=== PATIENT | female | born 1960 | race Caucasian/White ===

== ENCOUNTER 2018-10-04 10:56 | Outpatient (CLI) | payer BC, SELFPAY ==
[2018-10-04 12:56] LABS: HCT 46.1 % (36.0-46.0); HGB 14.8 g/dL (12.0-15.5); Mean Corp. HGB Concentration 32.1 g/dL (32.0-36.0); Mean Corpuscular Volume 84.1 fL (80-95); Mean Platelet Volume 9.5 fL (8.0-11.0); Platelet Count 519 x1000/uL (130-400); RBC 5.48 m/cumm (4.00-5.20); RBC Distribution Width 14.5 % (11.7-14.6); White Blood Cell Count 22.94 k/cumm (4.4-10.8)
[2018-10-04 13:35] LABS: ALT 24 U/L (12-78); AST 17 U/L (15-37); Albumin 3.8 g/dL (3.4-5.0); Alkaline Phosphatase 75 U/L (46-116); Anion Gap 13.1 mmol/L (3-11); BUN 27 mg/dL (7-18); Bilirubin, Total 0.3 mg/dL (0.2-1.0); C-Reactive Protein 1.13 mg/dL (0.0-0.3); CO2 24.9 mmol/L (21.0-32.0); CREATININE 1.03 mg/dL (0.55-1.02); Calcium 9.4 mg/dL (8.5-10.1); Chloride 98 mmol/L (98-107); Estimated GFR 55.04 (mL/min/1.73m2); Glucose 135 mg/dL (70-100); Potassium 4.5 mmol/L (3.5-5.1); Sodium 136 mmol/L (136-145); Total Protein 7.3 g/dL (6.4-8.2)
[2018-10-04 14:34] LABS: ESR 20 MM/HR (0-30)
== END 2018-10-04 11:16 ==
PROVIDERS: PCP Family Medicine; Visit Provider Family Medicine
DX: M35.3 Polymyalgia rheumatica (principal)
CPT/HCPCS: 36415; 80053; 85027; 85652; 86140

== ENCOUNTER 2019-02-02 17:55 | Outpatient (REF) | payer BC, SELFPAY | END 2019-02-02 18:15 | LOC: LBN 17:55 | PROVIDERS: PCP Family Medicine; Visit Provider Obstetrics & Gynecology | DX: L02.214 Cutaneous abscess of groin (principal) | CPT/HCPCS: 87077; 87070; 87186; 87205 ==

== ENCOUNTER 2019-02-10 01:45 | Outpatient (RCR) | payer BC, SELFPAY ==
[2019-02-03] MEDS: Normal Saline Flush 10 ML SYR IVP (07:15)
[2019-02-04] MEDS: Normal Saline Flush 10 ML SYR IVP ×2 (08:09→15:01)
[2019-02-05] MEDS: Normal Saline Flush 10 ML SYR IVP (13:29)
[2019-02-05] MEDS: VANCOMYCIN 1,500 MG in Normal Saline 250 ML 166.667 MG IVPB (13:29)
[2019-02-06] MEDS: VANCOMYCIN 2,000 MG in Normal Saline 500 ML 250 MG IVPB (12:58)
[2019-02-07] MEDS: Normal Saline Flush 10 ML SYR IVP ×3 (09:16→20:54)
[2019-02-07 19:01] VITALS: BP 157/85; PULSE 95; RESP 16; TEMP 36.6; O2SAT 100
[2019-02-08] MEDS: Normal Saline Flush 10 ML SYR IVP ×2 (06:57→08:39)
[2019-02-08 18:50] VITALS: BP 157/79; PULSE 93; RESP 16; TEMP 36.3; O2SAT 97
[2019-02-09 07:07] LABS: Vancomycin, Trough 15.3 ug/mL (10.0-20.0)
[2019-02-09 07:26] LABS: CREATININE 1.17 mg/dL (0.55-1.02); Estimated GFR 47.51 (mL/min/1.73m2)
[2019-02-09] MEDS: Normal Saline Flush 10 ML SYR IVP ×2 (07:34→18:56)
[2019-02-09 18:58] VITALS: BP 147/94; PULSE 95; RESP 18; TEMP 36.2; O2SAT 97
[2019-02-10] MEDS: Normal Saline Flush 10 ML SYR IVP (07:15)
== END 2019-02-27 23:59 | disposition home or self-care (01) ==
LOC: INF 01:45
PROVIDERS: Obstetrics & Gynecology; PCP Family Medicine; Visit Provider Obstetrics & Gynecology Gynecology
DX: L02.214 Cutaneous abscess of groin (principal); B95.62 Methicillin resistant Staphylococcus aureus infection as the cause of diseases classified elsewhere; Z45.2 Encounter for adjustment and management of vascular access device
CPT/HCPCS: 36415; 36569; 96365; 96366; 99211; 80202; 82565

== ENCOUNTER 2019-04-20 10:51 | Outpatient (CLI) | payer BC, SELFPAY ==
[2019-04-20 13:36] LABS: C-Reactive Protein 2.72 mg/dL (0.0-0.3)
[2019-04-20 14:20] LABS: ESR 50 MM/HR (0-30)
== END 2019-04-20 11:11 ==
LOC: LBO 11:01 → LOS 13:11
PROVIDERS: PCP Family Medicine; Visit Provider Internal Medicine Rheumatology
DX: M35.3 Polymyalgia rheumatica (principal)
CPT/HCPCS: 36415; 85652; 86140

== ENCOUNTER 2019-04-27 13:24 | Outpatient (CLI) | payer BC, SELFPAY ==
--- NOTE | 2019-04-27 13:15 | DI.RAD_ITS ---
SYMPTOMS/DIAGNOSIS: NECK PAIN, TINGLING BOTH HANDS, PAIN LT ARM > RT ARM, CERVICALGIA, M54.2 CERVICAL SPINE: AP, lateral, oblique and open mouth odontoid projections are provided. There is straightening of the normal cervical lordosis. The vertebral bodies are intact. There is disc space narrowing at C 4 - 5, C 5 - 6 and C 6 - 7 with posterior osteophytes noted at C 5 - 6 and C 6 - 7. There is some bilateral bony foraminal compromise at C 6 - 7. The findings most severe on the right side. The neural canal is intact. The facet joints are intact. The posterior elements appear unremarkable. The odontoid is well maintained and is closely applied to the anterior arch of C 1. SUMMARY: Straightening of the normal cervical lordosis is demonstrated and there is evidence of degenerative disc disease and DJD at C 4 through C 7. Bony foraminal compromise by posterior spurring is identified at C 6 - 7 bilaterally.
== END 2019-04-27 13:44 ==
PROVIDERS: PCP Family Medicine; Visit Provider Family Medicine
DX: M54.2 Cervicalgia (principal); R20.2 Paresthesia of skin; M79.602 Pain in left arm; M50.321 Other cervical disc degeneration at C4-C5 level; M50.322 Other cervical disc degeneration at C5-C6 level; M50.323 Other cervical disc degeneration at C6-C7 level; M47.22 Other spondylosis with radiculopathy, cervical region
CPT/HCPCS: 72050

== ENCOUNTER 2019-05-04 00:59 | Outpatient (CLI) | payer BC, SELFPAY ==
--- NOTE | 2019-05-04 08:00 | DI.MAMMO_ITS ---
SYMPTOM/DIAGNOSIS: SCREENING, Z12.31 MAMMOGRAMS: Mammograms were interpreted according to the usual protocol including computer analysis with CAD system, tomosynthesis and C view imaging. Comparison is made with prior examinations. Breast density, Category A. No suspicious masses or microcalcifications are seen. There is no definite evidence of malignancy. IMPRESSION: Negative mammogram. Routine screening is recommended. Category 1. MQSA ASSESSMENT OF FINDINGS: Negative. Category 1. Patient will receive a letter notifying them of these results. BI-RAD category A. The breasts are almost entirely fatty.
== END 2019-05-04 01:19 ==
PROVIDERS: PCP Family Medicine; Visit Provider Family Medicine
DX: Z12.31 Encounter for screening mammogram for malignant neoplasm of breast (principal)
CPT/HCPCS: 77063; 77067

== ENCOUNTER 2019-05-27 10:04 | Outpatient (CLI) | payer BC, SELFPAY ==
[2019-05-27 15:12] LABS: ESR 11 MM/HR (0-30)
[2019-05-27 15:40] LABS: C-Reactive Protein 0.27 mg/dL (0.0-0.3)
== END 2019-05-27 10:24 ==
PROVIDERS: PCP Family Medicine; Visit Provider Internal Medicine Rheumatology
DX: M35.3 Polymyalgia rheumatica (principal)
CPT/HCPCS: 36415; 85652; 86140

== ENCOUNTER 2019-06-24 12:45 | Outpatient (REF) | payer BC, SELFPAY | END 2019-06-24 13:05 | LOC: LBN 12:45 | PROVIDERS: PCP Family Medicine; Visit Provider Family Medicine | DX: L02.214 Cutaneous abscess of groin (principal) | CPT/HCPCS: 87077; 87070; 87186; 87205 ==

== ENCOUNTER 2019-08-03 10:39 | Emergency (ER) | payer BC, SELFPAY ==
[2019-08-03 10:46] VITALS: BP 143/59; PULSE 106; RESP 18; TEMP 36.2; O2SAT 98
--- NOTE | 2019-08-03 11:24 | DI.RAD_ITS ---
SYMPTOMS/DIAGNOSIS: LT ANKLE AND FOOT PAIN, FALL LEFT FOOT: No fracture or dislocation is seen. IMPRESSION: Negative left foot. LEFT ANKLE: No fracture or ankle mortise widening is seen. There is a spur at the Achilles insertion on the calcaneus. There is no ankle mortise widening or talar dome defect. IMPRESSION: Negative left ankle.
--- NOTE | 2019-08-03 13:00 | ED.GENADUL_ITS ---
Discharge Plan Disposition Patient Disposition: HOME Condition: Good Discharge Details Chief Complaint: Orthopedic Clinical Impression: Ankle sprain Primary Care Provider: Lucinda Toro ED Provider: Christina Griffin Home Meds and New Rx's Prescriptions: New (DME) cane Device See Rx Instructions .ROUTE .MEDSUPPLY Qty: 1 RF: 0 Continued celecoxib [Celebrex] 100 mg capsule 100 mg PO BID RF: 0 fluticasone propionate 50 mcg/actuation spray,suspension 2 spray NS DAILY Qty: 1 RF: 6 omeprazole 40 mg capsule,delayed release(DR/EC) 40 mg PO DAILY Qty: 90 RF: 4 lisinopril 10 mg tablet 10 mg PO DAILY Qty: 30 RF: 3 aspirin [Adult Low Dose Aspirin] 81 MG tablet,delayed release (DR/EC) 81 mg PO DAILY RF: 0 cholecalciferol (vitamin D3) [Vitamin D3] 2,000 UNIT capsule 2,000 unit PO DAILY Qty: 90 RF: 5 acetaminophen 650 MG tablet 2 tab PO Q8H PRN RF: 0 oxybutynin chloride 5 mg tablet extended release 24hr 5 mg PO HS Qty: 90 RF: 2 hydrochlorothiazide 25 mg tablet 25 mg PO DAILY Qty: 90 RF: 4 albuterol sulfate [ProAir HFA] 90 mcg/actuation HFA aerosol inhaler 1 - 2 puff Inhalation Q4H PRN Qty: 2 RF: 6 cetirizine 10 mg tablet 10 mg PO DAILY PRN (Reason: allergy) Qty: 90 RF: 4 acetaminophen-codeine 300-30 mg Tablet PO PRN PRNRF: 0 Discharge Instructions Instructions: Ankle Sprain (ED) Additional Instructions: Elevate leg for swelling. Tylenol for soreness if needed. Rest activities as tolerated. Follow-up with orthopedic doctor next week as scheduled for reevaluation. Return for any worsening or concerns sooner if needed Referrals: Mark Hawthorne [ NON-[facility] STAFF PHYSICIAN] - Medical Decision Making Patient complains of left ankle pain and foot pain after fall down 2 steps. Patient denies any other associated injury. On exam patient has mild swelling to the ankle pain to the top of the foot. X-ray evaluation unremarkable for obvious fracture. Discussed with patient she prefers to use walking boot and cane. She does have follow-up appointment with orthopedic doctor next week for shoulder complaints which are long-standing. She will follow-up with her own orthopedic doctor next week for any persistence of pain. Rice encouraged. No obvious convocation. HPI General Date/Time Provider Initiated Documentation: 08/03/19 10:49 . HPI Narrative: Patient fell down 2 stairs 6 days ago. Patient reports she rolled her left ankle. Patient reports persistent pain in ankle and foot since that time. Rested over the weekend then ambulated yesterday which cause increased pain and swelling in the evening. Patient denies striking head neck or back. No other sites of pain or concerns at this time. No open wounds. No other associated numbness, tingling or weakness reported. Related Data Home Medications Medication Instructions Recorded Confirmed aspirin [Adult Low Dose Aspirin] 81 mg PO DAILY tab-cap 05/05/16 08/03/19 cholecalciferol (vitamin D3) 2,000 unit PO DAILY #90 tab-cap 08/27/17 08/03/19 [Vitamin D3] acetaminophen 2 tab PO Q8H PRN tab-cap 06/07/18 08/03/19 oxybutynin chloride 5 mg 5 mg PO HS #90 tab-cap 10/19/18 08/03/19 tablet,extended release 24 hr celecoxib 100 mg capsule 100 mg PO BID 01/05/19 08/03/19 fluticasone propionate 50 2 spray NS DAILY #1 gm 01/05/19 08/03/19 mcg/actuation nasal spray,suspension hydrochlorothiazide 25 mg tablet 25 mg PO DAILY #90 tab-cap 01/14/19 08/03/19 omeprazole 40 mg capsule,delayed 40 mg PO DAILY #90 cap 04/04/19 08/03/19 release lisinopril 10 mg tablet 10 mg PO DAILY #30 tab 04/27/19 08/03/19 albuterol sulfate 90 mcg/actuation 1 - 2 puff INHALATION Q4H PRN #2 05/19/19 08/03/19 aerosol inhaler inhaler cetirizine 10 mg tablet 10 mg PO DAILY PRN #90 tab-cap 07/14/19 08/03/19 acetaminophen-codeine tab PO PRN PRN 08/03/19 cane #1 each 08/03/19 Previous Rx's Medication Instructions Recorded cholecalciferol (vitamin D3) 2,000 unit PO DAILY #90 tab-cap 08/27/17 [Vitamin D3] oxybutynin chloride 5 mg 5 mg PO HS #90 tab-cap 10/19/18 tablet,extended release 24 hr fluticasone propionate 50 2 spray NS DAILY #1 gm 01/05/19 mcg/actuation nasal spray,suspension hydrochlorothiazide 25 mg tablet 25 mg PO DAILY #90 tab-cap 01/14/19 omeprazole 40 mg capsule,delayed 40 mg PO DAILY #90 cap 04/04/19 release lisinopril 10 mg tablet 10 mg PO DAILY #30 tab 04/27/19 albuterol sulfate 90 mcg/actuation 1 - 2 puff INHALATION Q4H PRN #2 05/19/19 aerosol inhaler inhaler cetirizine 10 mg tablet 10 mg PO DAILY PRN #90 tab-cap 07/14/19 cane #1 each 08/03/19 Allergies Allergy/AdvReac Type Severity Reaction Status Date / Time oxycodone AdvReac Intermediate HALLUCINATI Verified 08/03/19 10:49 ONS General Stated Complaint: Orthopedic GERMANIA: 4 Review of Systems Review of Systems CONSTITUTIONAL: The patient denies fevers, chills. EYES: Denies vision changes, blurry vision, or eye pain. ENT: Denies hearing changes, tinnitus, vertigo, sore throat. CARDIAC: Denies chest pain, SOB. RESPIRATORY: Denies cough, sputum. Denies difficulty breathing. GASTROINTESTINAL: Denies abdominal pain, changes in bowel, vomiting or nausea. GENITOURINARY: Denies dysuria, or frequency of urination. MUSCULOSKELETAL: Ankle pain, limping gait. NEUROLOGIC: Denies headaches, Denies focal weakness. Denies numbness. INTEGUMENT: Denies rashes. PSYCHIATRIC: Denies behavior changes. Denies anxiety or depression. ENDOCRINOLOGY: Denies fatigue. PSYCHIATRY: Denies depression, agitation or anxiety [facility] Medical History Asthma (Chronic) Endometriosis (Inactive) GERD (gastroesophageal reflux disease) (Chronic) Irritable bowel syndrome (IBS) (Chronic) Migraine (Chronic) TK (obstructive sleep apnea) (Chronic) Osteoarthritis (Chronic) Surgical History Abdominal hysterectomy (Inactive ~1994) TOTAL;SECONDARY TO ENDOMETRIOSIS AND CYSTIC OVARIES Appendectomy (Resolved ~06/1996) Bilateral salpingectomy with oophorectomy (Resolved ~1994) Colonoscopy - MAC (Resolved 10/16/17) Repair of inguinal hernia (Resolved) RIGHT Thyroid (Resolved ~1993) PARTIAL THYROIDECTOMY Tooth extraction (Resolved) 10/12; 3 MOLARS REMOVED Family History Mother , 65 Diabetes Essential hypertension Heart disease CHF Hyperlipidemia Stroke Asthma Father , 55 Lung cancer Sister Diabetes Maternal Grandfather Diabetes Sister Depression Brother Depression Asthma Sister No problems noted. Maternal Grandmother Stomach cancer Paternal Grandfather No problems noted. Paternal Grandmother No problems noted. Social History Smoking/Tobacco Use Status: Never Alcohol Intake: never Drug use: Never Substance use type: marijuana Caregiver/Support person: No Household members: other Details: Roommate Housing: house Pets and animals: Yes Pets and animals: dog(s) Sexually active: Yes Do you think of yourself as: straight/heterosexual Current gender identity: female Duration: 15-30 minutes/day Frequency: 1-2 times per week Theresa/Yarsanism: Anabaptism Do you feel safe at home: Yes Exam Narrative Exam Narrative: CONST: Healthy appearing patient, in no acute distress. Well hydrated. Alert and alert. HENMT: Head nomocephalic, normal to inspection. Atraumatic. Hearing grossly normal. EYES: General normal appearance. Alignment normal. Eyelids normal. Conjunctiva normal. NECK: Normal visual inspection. FROM. Trachea midline. No Midline tenderness. CHEST: Normal insepection of the chest. RESP: Normal respiratory effort. Speaking full sentences. No cough. No audible wheezing. No retractions. CARDIO: No JVD. MUSCULOSKELETAL: No hip pain with palpation, any pain with palpation or maldonado pain with palpation. Achilles tendon intact. Mild lateral malleolus te nderness. Mild dorsal foot pain with palpation. Mild swelling present to the dorsal foot. Pulses intact. Distal neurovascularly intact. No open wounds. No rashes. SKIN: Normal. Dry. No rashes. NEURO: Alert and awake. Speech clear. PSYCH: Normal affect. Cooperative. Course Vital Signs Temperature 36.2 C L 08/03/19 10:46 Pulse 106 H 08/03/19 10:46 Respiratory Rate 18 08/03/19 10:46 Blood Pressure 143/59 H 08/03/19 10:46 Pulse Oximetry 98 08/03/19 10:46 Temperature 36.2 C L 08/03/19 10:46 Temperature Source Skin 08/03/19 10:46 Pulse 106 H 08/03/19 10:46 Respiratory Rate 18 08/03/19 10:46 Respiratory Effort Non-Labored 08/03/19 10:52 Blood Pressure 143/59 H 08/03/19 10:46 Blood Pressure Position Sitting 08/03/19 10:46 Pulse Oximetry 98 08/03/19 10:46 Oxygen Delivery Method Nasal Cannula 08/03/19 10:46 Pain Level 10 08/03/19 10:46
== END 2019-08-03 13:27 | disposition home or self-care (01) ==
PROVIDERS: Emergency Provider Physician Assistant; PCP Family Medicine
DX: S93.402A Sprain of unspecified ligament of left ankle, initial encounter; W10.8XXA Fall (on) (from) other stairs and steps, initial encounter; M19.90 Unspecified osteoarthritis, unspecified site
CPT/HCPCS: 99284; 73610; 73630; 99282; E0114; L4361

== ENCOUNTER 2019-12-06 07:09 | Outpatient (CLI) | payer BC, SELFPAY ==
[2019-12-06 09:42] LABS: Calculated LDL 135 mg/dL; Cholesterol 208 mg/dL (<200); HDL Cholesterol 41 mg/dL (40-60); Triglyceride 160 mg/dL (<150)
[2019-12-06 14:48] LABS: C-Reactive Protein 0.88 mg/dL (0.0-0.3)
== END 2019-12-06 07:29 ==
PROVIDERS: Nurse Practitioner Adult Health; PCP Family Medicine; Visit Provider Internal Medicine Rheumatology
DX: M35.3 Polymyalgia rheumatica (principal); M15.0 Primary generalized (osteo)arthritis; G89.4 Chronic pain syndrome; Z79.52 Long term (current) use of systemic steroids; I10 Essential (primary) hypertension
CPT/HCPCS: 36415; 80061; 86140

== ENCOUNTER 2020-02-11 03:03 | Outpatient (CLI) | payer BC, SELFPAY ==
[2020-02-11 10:58] LABS: C-Reactive Protein 1.76 mg/dL (0.0-0.3)
[2020-02-11 11:24] LABS: ESR 47 mm/hr (0-30)
== END 2020-02-11 03:23 ==
PROVIDERS: PCP Family Medicine; Visit Provider Family Medicine
DX: M35.3 Polymyalgia rheumatica (principal)
CPT/HCPCS: 36415; 85652; 86140

== ENCOUNTER 2020-09-19 03:17 | Outpatient (CLI) | payer MEDICAID, SELFPAY ==
[2020-09-19 13:09] LABS: C-Reactive Protein 0.58 mg/dL (0.0-0.3)
[2020-09-19 14:25] LABS: ESR 10 mm/hr (0-30)
== END 2020-09-19 03:37 ==
PROVIDERS: PCP Family Medicine; Visit Provider Nurse Practitioner Family
DX: M35.3 Polymyalgia rheumatica (principal)
CPT/HCPCS: 85652; 86140

== ENCOUNTER 2020-09-27 18:34 | Outpatient (REF) | payer MEDICAID, SELFPAY | END 2020-09-27 18:54 | LOC: LBN 18:34 | PROVIDERS: PCP Family Medicine; Visit Provider Obstetrics & Gynecology | DX: N76.4 Abscess of vulva (principal) | CPT/HCPCS: 87070; 87205 ==

== ENCOUNTER 2020-11-07 09:50 | Outpatient (CLI) | payer MEDICAID, SELFPAY ==
[2020-11-08 19:22] LABS: COVID-19 RT-PCR UVMMC Result Negative (Negative)
== END 2020-11-07 10:10 ==
PROVIDERS: PCP Family Medicine; Visit Provider Family Medicine
DX: Z20.828 Contact with and (suspected) exposure to other viral communicable diseases (principal)
CPT/HCPCS: U0003

== ENCOUNTER 2021-01-30 03:54 | Outpatient (CLI) | payer MEDICAID, SELFPAY ==
[2021-01-30 12:39] LABS: HCT 43.4 % (36.0-46.0); HGB 13.7 g/dL (11.2-15.7); MCH 26.7 pg (27.0-33.0); MCHC 31.6 % (32.0-36.0); MCV 84.4 fL (80-95); MPV 9.7 fL (8.0-11.0); Platelet Count 641 10^3/uL (130-400); RBC 5.14 10^6/uL (3.93-5.22); RDW 14.5 % (11.7-14.6); RDW-SD 44.6 fL; WBC 18.14 10^3/uL (4.4-10.8)
[2021-01-30 13:16] LABS: ALT 18 U/L (14-59); AST 13 U/L (15-37); Albumin 3.6 g/dL (3.4-5.0); Alkaline Phosphatase 93 U/L (46-116); Anion Gap 12.2 mmol/L (3-11); BUN 33 mg/dL (7-18); Bilirubin, Total 0.3 mg/dL (0.2-1.0); CO2 24.8 mmol/L (21.0-32.0); CREATININE 1.1 mg/dL (0.55-1.02); Calcium 9.7 mg/dL (8.5-10.1); Calculated LDL 141 mg/dL (<100); Chloride 103 mmol/L (98-107); Cholesterol 217 mg/dL (<200); Estimated GFR 50.67 (mL/min/1.73m2); Glucose 109 mg/dL (74-106); HDL Cholesterol 46 mg/dL (40-60); Magnesium 1.9 mg/dL (1.8-2.4); Potassium 4.4 mmol/L (3.5-5.1); Sodium 140 mmol/L (136-145); Total Protein 7.5 g/dL (6.4-8.2); Triglyceride 153 mg/dL (<150)
[2021-01-31 05:04] LABS: Vitamin D 25 Total 34.1 ng/ml (30-100)
== END 2021-01-30 03:55 | disposition home or self-care (01) ==
LOC: LOS 03:55
PROVIDERS: PCP Family Medicine; Visit Provider Internal Medicine Rheumatology
DX: I10 Essential (primary) hypertension (principal); R53.83 Other fatigue; E55.9 Vitamin D deficiency, unspecified; E83.42 Hypomagnesemia
CPT/HCPCS: 36415; 80053; 80061; 82306; 85027; 83735; 84443

== ENCOUNTER 2021-02-04 01:50 | Outpatient (CLI) | payer MEDICAID, SELFPAY ==
--- NOTE | 2021-02-04 12:43 | DI.MAMMO_ITS ---
EXAM: MAMMO SCREENING CLINICAL HISTORY: screening,Z12.39 TECHNIQUE: Mammograms were interpreted according to the usual protocol including computer analysis w [employer] CAD system, tomosynthesis and C-view imaging. COMPARISON: 2017 and 2018 FINDINGS: The breasts are composed of mainly fatty density , Breast Density category A. No suspicious masses or suspicious microcalcifications are seen. No skin thickening or abnormal axillary lymph nodes are seen. There has been no significant change from prior exams. IMPRESSION: BI-RADS Category 1, Negative mammogram Yearly screening mammography is recommended. Breast Density - Category A, fatty density. A negative radiographic report should not delay biopsy if a dominant or clinically suspicious mass is present. Up to ten percent of cancers are not identified on mammography. A negative report may reinforce clinical impression. Adenosis and dense breasts may obscure an underlying neoplasm. False positive reports average 6 to 10%. Patient will receive a letter notifying them of these results.
== END 2021-02-04 02:10 ==
PROVIDERS: PCP Family Medicine; Visit Provider Family Medicine
DX: Z12.31 Encounter for screening mammogram for malignant neoplasm of breast (principal)
CPT/HCPCS: 77063; 77067

== ENCOUNTER 2021-03-14 01:59 | Outpatient (CLI) | payer MEDICAID, SELFPAY ==
--- NOTE | 2021-03-14 | DI.DEXA_ITS ---
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 COMPARISON: No exams were available for comparison FINDINGS: Performed on a Hologic unit. Lateral image: No compression fracture evident. Lumbar Spine total T-score: -1.7 Hip total T-score:-1.3 Independent reading at the femoral neck yields a T-score -2.4 Forearm total T-score: -0.2 IMPRESSION: Bone mineral density measures in the osteopenia range. Fracture risk is moderate. Note: Any spine fracture indicates 5x risk for subsequent spine fracture and 2x risk for subsequent h ip fracture. World Health Organization criteria for BMD interpretation classify patients: Normal...... T- Score at or above -1.0 Osteopenic... T- Score between -1.0 and -2.5 Osteoporosis... T-Score at or below -2.5
== END 2021-03-14 02:19 ==
PROVIDERS: PCP Family Medicine; Visit Provider Internal Medicine Rheumatology
DX: M85.88 Other specified disorders of bone density and structure, other site (principal); M35.3 Polymyalgia rheumatica; Z79.52 Long term (current) use of systemic steroids
CPT/HCPCS: 77080

== ENCOUNTER 2021-04-26 15:20 | Outpatient (CLI) | payer MEDICAID, SELFPAY ==
--- NOTE | 2021-04-26 14:45 | DI.RAD_ITS ---
Exam(s) XR CHEST 2V PA LATERAL EXAM: XR CHEST 2V PA LATERAL CLINICAL HISTORY: r/o pneumonia/asthma exacerbation, SOB, R06.02 TECHNIQUE: 2D digital imaging was performed. COMPARISON: CR CHEST 2 VIEWS PA,LAT from 03/26/2016 FINDINGS: The heart is not enlarged. The lungs are clear and well expanded. No pleural effusion seen. Mediastin al contours appear intact. IMPRESSION: Normal chest. RADIATION DOSE DELIVERED: Total DLP
== END 2021-04-26 15:40 ==
PROVIDERS: PCP Family Medicine; Visit Provider Nurse Practitioner Family
DX: R06.02 Shortness of breath (principal)
CPT/HCPCS: 71046

== ENCOUNTER 2021-04-26 17:02 | Emergency (ER) | payer MEDICAID, SELFPAY ==
[2021-04-26 17:10] VITALS: BP 156/82; PULSE 120; RESP 22; TEMP 36.2; O2SAT 95
--- NOTE | 2021-04-26 17:15 | RT.EKG_ITS ---
APPROVED REPORT Exam: Resting ECG Reason for Exam: tachycardia Patient Location: E HR:108 bpm ECG Measurements Heart Rate 108 AXIS RI 156 P 70 QRSd 128 QRS -46 QT 382 T 114 QTc 510 Conclusion Sinus tachycardia.. Left bundle branch block. ST elevation secondary to IVCD
--- NOTE | 2021-04-26 17:27 | ED.GENADUL_ITS ---
Discharge Plan Disposition Patient Disposition: HOME Condition: Improving Discharge Details Clinical Impression: Atelectasis, Mucoid impaction of bronchi Primary Care Provider: Lucinda Toro ED Provider: Esvin Castillo Home Meds and New Rx's Prescriptions: New doxycycline hyclate 100 mg capsule 100 mg PO BID 7 Days Qty: 14 RF: 0 Continued lisinopril 10 mg tablet 10 mg PO DAILY Qty: 90 RF: 3 cyclobenzaprine 10 mg tablet 10 mg PO TID PRN (Reason: muscle spasm) Qty: 10 RF: 0 prednisone 20 mg tablet See Rx Instructions PO DAILY Qty: 11 RF: 0 guaifenesin 600 mg tablet extended release 12hr 600 mg PO Q12H PRN (Reason: congestion) Qty: 30 RF: 0 methylprednisolone 4 mg tablet 4 mg PO DAILY RF: 0 aspirin [Adult Low Dose Aspirin] 81 MG tablet,delayed release (DR/EC) 81 mg PO DAILY RF: 0 cholecalciferol (vitamin D3) [Vitamin D3] 2,000 UNIT capsule 2,000 unit PO DAILY Qty: 90 RF: 5 hydrochlorothiazide 25 mg tablet 25 mg PO DAILY Qty: 90 RF: 4 omeprazole 40 mg capsule,delayed release(DR/EC) 40 mg PO DAILY Qty: 90 RF: 4 diclofenac sodium [Voltaren] 1 % gel 2 gm TP QID PRN (Reason: muscle pain) Qty: 100 RF: 0 cetirizine 10 mg tablet 10 mg PO DAILY PRN (Reason: allergy) Qty: 90 RF: 4 duloxetine 60 mg capsule,delayed release(DR/EC) 60 mg PO DAILY Qty: 90 RF: 4 albuterol sulfate [ProAir HFA] 90 mcg/actuation HFA aerosol inhaler 1 - 2 puff Inhalation Q4H PRN Qty: 2 RF: 6 oxybutynin chloride 5 mg tablet extended release 24hr 5 mg PO DAILY Qty: 30 RF: 2 fluticasone propionate 50 mcg/actuation spray,suspension 2 spray NS DAILY PRN (Reason: allergy symptoms) Qty: 1 RF: 6 Discharge Instructions Additional Instructions: Use incentive spirometer 5-6 times daily for at least 1 week. Take previously prescribed steroid burst. Begin antibiotics as I have prescribed for you tomorrow following starting of dosing tonight. Continue your regular medications. We will ask our health care marketing manager to arrange a follow-up for you for recheck in clinic. Return to the ER for any acute concerns. Medical Decision Making 60-year-old female presents from referral from urgent care. States that to be sure she will of URI symptoms with cough, congestion, production of white sputum. Denies chest pain or difficulty with breathing. She has not had weight gain or lower extremity edema. She was treated with a Z-Festus and brief prednisone burst. Seen at urgent care today and given repeat taper of steroid, Mucinex, and referred to the ED. Patient arrives afebrile, tachycardic with a pulse approximately 120, oxygenating normally. She does have coarse rhonchi throughout the lung adair. Differential diagnosis includes PE, CHF, pneumonia, bronchospasm. IV access established, patient given parenteral steroid, fluids, referred for laboratory testing, EKG CT images. The patient historically has a chronic leukocytosis, likely partially due to chronic steroid use. Today, white blood cell count of 22, hematocrit 42, platelets 543. BUN 33, creatinine 1.4. Troponin and BNP are unremarkable. D- dimer slightly elevated. CT imaging obtained which reveals mucoid impaction in the left lower lobe bronchi with associated linear atelectasis. No other acute thoracic pathology identified. See formal report. Following parenteral steroids and DuoNeb, patient improved. Heart rate co rrected. I will treat her with doxycycline for bronchitis. She is taught the use of incentive spirometer for home. She will fill previously prescribed steroids and Mucinex. She is stable and improved at this time. HPI General Mode of arrival: ambulatory . Date/Time Provider Initiated Documentation: 04/26/21 17:08 . Limitations to Documentation: no limitations . Information obtained by: patient . History of Present Illness 60 year old F presents to the emergency department with the chief complaint of Persistent cough, described as moderate, Quality is described as dull, and is localized to the chest. Patient started experiencing this day(s) and it has been intermittent. No relieving factors improve symptom(s), No exacerbating factors reported . Patient notes cough; denies syncope. Patient did receive the following treatments prior to arrival, other (Finished a Z-Festus and steroids. Seen at urgent care today) Related Data Home Medications Medication Instructions Recorded Confirmed aspirin [Adult Low Dose Aspirin] 81 mg PO DAILY tab-cap 05/05/16 04/26/21 cholecalciferol (vitamin D3) 2,000 unit PO DAILY #90 tab-cap 08/27/17 04/26/21 [Vitamin D3] hydrochlorothiazide 25 mg tablet 25 mg PO DAILY #90 tab-cap 01/14/19 04/26/21 omeprazole 40 mg capsule,delayed 40 mg PO DAILY #90 cap 05/13/20 04/26/21 release diclofenac sodium 1 % topical gel 2 gm TP QID PRN #100 gm 05/17/20 04/26/21 cetirizine 10 mg tablet 10 mg PO DAILY PRN #90 tab-cap 08/07/20 04/26/21 lisinopril 10 mg tablet 10 mg PO DAILY #90 tab 09/21/20 04/26/21 cyclobenzaprine 10 mg tablet 10 mg PO TID PRN #10 tab 10/02/20 04/26/21 methylprednisolone 4 mg tablet 4 mg PO DAILY tab 12/12/20 04/26/21 duloxetine 60 mg capsule,delayed 60 mg PO DAILY #90 cap 12/26/20 04/26/21 release albuterol sulfate 90 mcg/actuation 1 - 2 puff INHALATION Q4H PRN #2 02/12/21 04/26/21 aerosol inhaler inhaler oxybutynin chloride 5 mg 5 mg PO DAILY #30 tab 04/04/21 04/26/21 tablet,extended release 24 hr fluticasone propionate 50 2 spray NS DAILY PRN #1 gm 04/18/21 04/26/21 mcg/actuation nasal spray,suspension doxycycline hyclate 100 mg PO BID 7 Days #14 cap 04/26/21 guaifenesin 600 mg tablet, 600 mg PO Q12H PRN #30 tab 04/26/21 04/26/21 extended release 12 hr prednisone 20 mg tablet See Rx Instructions PO DAILY #11 04/26/21 04/26/21 tab Previous Rx's Medication Instructions Recorded cholecalciferol (vitamin D3) 2,000 unit PO DAILY #90 tab-cap 08/27/17 [Vitamin D3] hydrochlorothiazide 25 mg tablet 25 mg PO DAILY #90 tab-cap 01/14/19 omeprazole 40 mg capsule,delayed 40 mg PO DAILY #90 cap 05/13/20 release diclofenac sodium 1 % topical gel 2 gm TP QID PRN #100 gm 06/18/20 cetirizine 10 mg tablet 10 mg PO DAILY PRN #90 tab-cap 08/07/20 lisinopril 10 mg tablet 10 mg PO DAILY #90 tab 09/21/20 cyclobenzaprine 10 mg tablet 10 mg PO TID PRN #10 tab 10/02/20 duloxetine 60 mg capsule,delayed 60 mg PO DAILY #90 cap 12/26/20 release albuterol sulfate 90 mcg/actuation 1 - 2 puff INHALATION Q4H PRN #2 02/12/21 aerosol inhaler inhaler oxybutynin chloride 5 mg 5 mg PO DAILY #30 tab 04/04/21 tablet,extended release 24 hr fluticasone propionate 50 2 spray NS DAILY PRN #1 gm 04/18/21 mcg/actuation nasal spray,suspension doxycycline hyclate 100 mg PO BID 7 Days #14 cap 04/26/21 guaifenesin 600 mg tablet, 600 mg PO Q12H PRN #30 tab 04/26/21 extended release 12 hr prednisone 20 mg tablet See Rx Instructions PO DAILY #11 04/26/21 tab Allergies Allergy/AdvReac Type Severity Reaction Status Date / Time oxycodone AdvReac Intermediate HALLUCINATI Verified 04/26/21 17:13 ONS General Stated Complaint: RespSymp GERMANIA: 3 Review of Systems Narrative: 6 systems reviewed and otherwise negative [facility] Medical History Dyspareunia Endometriosis Erythrocytosis (06/09/16) +leukocytosis +thrombocytosis: [facility] Hematology : etiology unknown: no evidence of primary marrow disorder/no lymphoma/no leukemia: do CBC 2x/year (JAK2 neg, BCR/ABL neg) no biopsy done Fibromyalgia GERD (gastroesophageal reflux disease) Irritable bowel syndrome (IBS) Microscopic hematuria (09/10/15) Migraine MRSA (methicillin resistant staph aureus) culture positive new area of suspicion given history MSRS will treat presumptively with Bactrim x 10 days Obesity Osteoarthritis Vitamin D deficiency Surgical History History of bilateral salpingo-oophorectomy History of partial thyroidectomy Family History Mother , 65 Diabetes Essential hypertension Heart disease CHF Hyperlipidemia Stroke Asthma Father , 55 Lung cancer Sister Diabetes Asthma Depression Hypertension COPD (chronic obstructive pulmonary disease) Maternal Grandfather Diabetes Sister Depression Brother Depression Asthma Heart disease Hypertension Heart attack Sister No problems noted. Maternal Grandmother Stomach cancer Paternal Grandfather No problems noted. Paternal Grandmother No problems noted. Brother Stroke Hypertension Social History Smoking/Tobacco Use Status: Never Second Hand Exposure: Yes Smoking risk assessment performed?: Yes Alcohol Intake: never Counseling provided: none Drug use: Occasionally Substance use type: marijuana Counseling given: No Counseling provided: none Caregiver/Support person: No Household members: other Details: Roommate Housing: apartment Communication Needs: None Do you need help understanding health information?: Never Pets and animals: No Sexually active: Yes Do you think of yourself as: straight/heterosexual Current gender identity: female What is your relationship status?: How often do you talk on the phone with friends or family?: three or more times per week How often do you get together with friends or relatives?: once per week How often do you attend sikh or mandaeism services?: decline to answer Do you belong to any clubs or organized social groups?: yes Panel score (0-1 are the most socially isolated patients): 2 What type of physical activity do you participate in: walking Duration: 15-30 minutes/day Frequency: 3-4 times per week Theresa/Methodist: Evangelical Special theresa needs: No Seatbelt use: always Helmet use: Yes Helmet use: always Drive intox or ride w/intox industrial truck driver: No Do you feel safe at home: Yes Do you feel safe in your relationship?: Yes Exam Narrative Exam Narrative: GEN: awake, alert, oriented 3. Pleasant, well groomed, i nteractive. HEAD: Normocephalic, atraumatic ENT: Mucous membranes moist, oropharynx unremarkable, External ear exam unremarkable EYES: PERRL, EOMI NECK: Full ROM, no TAMMY, no menigismus CHEST/RESP: Nontender, coarse rhonchi throughout, most at right base. CARDIOVASCULAR: Regular and tachycardic, no murmur, rub юлия. 2+ Rad pulse bilateral ABDOMEN: Soft, nontender, no mass. +Bowel sounds EXT: Full ROM, no edema, no rash Neuro: Grossly normal neurologic exam, conversant, interactive. Psych: Speech fluent, thoughts congruent, affect normal Course Vital Signs Vital signs: Vital Signs Temperature 36.2 C L 04/26/21 17:10 Pulse 120 H 04/26/21 17:10 Respiratory Rate 22 04/26/21 17:10 Blood Pressure 156/82 H 04/26/21 17:10 Pulse Oximetry 95 04/26/21 17:10 Temperature 36.2 C L 04/26/21 17:10 Temperature Source Skin 04/26/21 17:10 Pulse 120 H 04/26/21 17:10 Respiratory Rate 22 04/26/21 17:10 Respiratory Effort Non-Labored 04/26/21 17:15 Blood Pressure 156/82 H 04/26/21 17:10 Blood Pressure Position Sitting 04/26/21 17:10 Pulse Oximetry 95 04/26/21 17:10 Oxygen Delivery Method Room Air 04/26/21 17:10 Oxygen Flow Rate 0 04/26/21 17:10 Pain Level 4 04/26/21 17:10
--- NOTE | 2021-04-26 17:30 | DI.CT_ITS ---
Exam(s) CT CHEST PE CTA EXAM: CT CHEST PE CTA CLINICAL HISTORY: cough, rhonchi, tachycardia. TECHNIQUE: Imaging Protocol: Axial CT angiography was performed with multi-slice acquisition and mu lti-planar and/or 3D reconstructions. CONTRAST MATERIAL: Intravenous: Omnipaque 350 Contrast volume:83 mL COMPARISON: CT ABD/PELVIS WO W CONTRAST from 09/12/2015 FINDINGS: Tracheobronchial tree: Patent where visualized. Pulmonary parenchyma: No consolidation or dominant measurable mass. No architectural distortion. Mild dependent atelectasis. There is mucoid impaction seen in a left lower lobe bronchus. Pulmonary Arteries: No evidence of filling defect to suggest pulmonary emboli. Mediastinum and Letha: No dominant adenopathy or fluid collection. Small hiatal hernia. Visualized thyroid gland: The patient appears to be status post right thyroidectomy. There is a 1.3 cm hypodense nodule in the left lobe of the thyroid gland. No other suspicious abnormalities. No fu rther follow-up is recommended. Pleura: No effusion or pneumothorax. Heart: Mildly enlarged. No coronary artery calcifications are seen. No pericardial effusion. Aorta: Thoracic aorta non-dilated. Mild atherosclerosis. No evidence of dissection. Upper abdomen: Unremarkable. Soft tissues: Unremarkable. Bones: Degenerative changes. IMPRESSION: 1. No evidence of pulmonary embolism, thoracic aortic dissection or aneurysm. 2. Mucoid impaction of the left lower lobe bronchus with mild linear atelectasis in the bases. No fo nyla consolidating infiltrate. 3. 1.3 cm left thyroid nodule. No further follow-up is recommended. In patients >18 years with an incidental thyroid nodule (ITN) detected on CT,MRI, or extrathyroidal u ltrasound, no further evaluation is recommended if the nodule is 1 cm or less and has no suspicious i maging features. In patients<35 years with an (ITN) detected on CT, MRI, or extrathyroidal ultrasound, further evaluat ion with dedicated thyroid ultrasound is recommended if the nodule > 1 cm and has no suspicious imaga ing features, and if the patient has normal life expectancy. In patients >35 years with an ITN detected on CT MRI or extrathyroidal ultrasound, further evaluation with dedicated thyroid ultrasound is recommended if the nodule is > 1.5 cm and has no suspicious lidia ging features, and if the patient has normal life expenctancy. (JANICE, 2009 and ACR, 2014) RADIATION DOSE DELIVERED: 524.27mGy.cm Total DLP DATA REPOSITORY: All CT scans at this facility are submitted to the National Radiology Data Registry (NRDR) Dose Index Registry (DIR) with the [employer] (ACR). RADIATION OPTIMIZATION: All CT scans at this facility use at least one of these dose optimization te chniques: automated exposure control; mA and/or kV adjustment per patient size (includes targeted exa ms where dose is matched to clinical indication); or iterative reconstruction.
[2021-04-26] MEDS: Normal Saline 1,000 ML 1000 ML IV ×2 (17:50→19:14)
[2021-04-26] MEDS: methylPREDNISolone SUCC 125 MG VIAL IVP (17:50)
[2021-04-26] MEDS: Normal Saline 1,000 ML 150 ML IV (17:50)
[2021-04-26 18:00] LABS: Abs Immature Grans 0.41 10^3/uL (0.0-0.06); Absolute Basophil Count 0.09 10^3/uL (0.0-0.2); Absolute Eosinophil Count 0.04 10^3/uL (0.0-0.7); Absolute Lymphocyte Count 2.27 10^3/uL (1.2-3.4); Absolute Monocyte Count 1.47 10^3/uL (0.1-0.8); Absolute Neutrophil Count 17.97 10^3/uL (1.2-6.7); Basophils % 0.4; Eosinophils % 0.2; HCT 42.8 % (36.0-46.0); Immature Grans % 1.8; Lymphocytes % 10.2; MCH 27.1 pg (27.0-33.0); MCHC 32.7 % (32.0-36.0); MCV 82.8 fL (80-95); MPV 8.8 fL (8.0-11.0); Monocytes % 6.6; Neutrophils % 80.8; Nucleated RBC 0 %; Platelet Count 543 10^3/uL (130-400); RBC 5.17 10^6/uL (3.93-5.22); RDW 15.9 % (11.7-14.6); RDW-SD 47.8 fL; WBC 22.24 10^3/uL (4.4-10.8)
[2021-04-26 18:17] LABS: ALT 24 U/L (14-59); AST 17 U/L (15-37); Albumin 3.6 g/dL (3.4-5.0); Alkaline Phosphatase 117 U/L (46-116); BUN 33 mg/dL (7-18); Bilirubin, Total 0.3 mg/dL (0.2-1.0); CREATININE 1.4 mg/dL (0.55-1.02); Chloride 101 mmol/L (98-107); Estimated GFR 38.36 (mL/min/1.73m2); Glucose 134 mg/dL (74-106); Potassium 4.3 mmol/L (3.5-5.1); Sodium 137 mmol/L (136-145); Total Protein 7.6 g/dL (6.4-8.2)
[2021-04-26 18:18] LABS: Troponin I < 0.05 ng/mL (<0.06)
[2021-04-26 18:21] LABS: NT-proBNP 265 pg/mL (<300)
[2021-04-26 18:30] LABS: D-Dimer 731 ng/mlFEU (<500)
[2021-04-26] MEDS: Omnipaque 350 MG/ML 100 ML BTL IJ (18:30)
[2021-04-26] MEDS: Normal Saline - Diluent 50 ML VIAL IV (18:31)
[2021-04-26] MEDS: Albuterol/Ipratropium 3 ML UPD VIAL UPD (18:41)
[2021-04-26 19:03] VITALS: BP 153/52; PULSE 97; RESP 17; TEMP 36.9; O2SAT 97
--- NOTE | 2021-04-26 19:06 | DI.VRAD_ITS ---
PROCEDURE INFORMATION: Exam: CTA Chest With Contrast Exam date and time: 04/26/2021 5:40 PM Age: 60 years old Clinical indication: Cough and other: Rhonchi, tachycardia; Patient HX: Cough, rhonchi, tachycardia TECHNIQUE: Imaging protocol: Computed tomographic angiography of the chest with contrast. 3D rendering (Not supervised by radiologist): MIP and/or 3D reconstructed images were created by the technologist. COMPARISON: CR XR CHEST 2V PA LATERAL 04/26/2021 3:07 PM FINDINGS: Pulmonary arteries: Normal. No pulmonary emboli. Aorta: The aorta demonstrates mild atherosclerotic calcification. No acute aortic pathology. Thyroid: Right hemithyroidectomy. 1.4 cm left thyroid lobe nodule which may be further evaluated with nonemergent ultrasound. Lungs: There is subpleural atelectasis of the dependent portions of the lungs. Mild linear atelectasis in the left lower lobe. Segmental mucoid impaction in the left lower lobe bronchi. No acute interstitial or airspace disease. Remainder of the airways are patent. Pleural spaces: Unremarkable. No pneumothorax. No pleural effusion. Heart: The heart is moderately enlarged. No pericardial thickening or effusion. Mediastinal space: A small hiatal hernia is present. Lymph nodes: Unremarkable. No enlarged lymph nodes. Bones/joints: No acute skeletal pathology. Mild multilevel degenerative changes of the spine, as manifested by multilevel anterior osteophytes and multilevel decrease in intervertebral disc space. Soft tissues: Unremarkable. Other findings: The visualized intra-abdominal structures demonstrate no acute findings. IMPRESSION: 1. Segmental mucoid impaction in the left lower lobe bronchi with associated mild linear atelectasis. 2. No other acute thoracic pathology is otherwise appreciated. 3. Incidental findings as detailed above. Dictated and Authenticated by: Hussein Cruz MD. Ordering:PATEL Mcallister MD
[2021-04-26] MEDS: Doxycycline Hyclate 100 MG, 2 CAPS/BTL PO (19:23)
--- NOTE | 2021-04-26 19:35 | NUR.NOTE ---
Referral faxed to [facility] Dr Toro to follow up in a week or so. Bronchitis.Nursing Note:
== END 2021-04-26 19:35 | disposition home or self-care (01) ==
PROVIDERS: Emergency Provider Emergency Medicine; PCP Family Medicine
DX: J98.11 Atelectasis (principal); J98.09 Other diseases of bronchus, not elsewhere classified; J20.9 Acute bronchitis, unspecified; R79.1 Abnormal coagulation profile
CPT/HCPCS: 36415; 71275; 80053; 93005; 94640; 96361; 96374; 99285; 83880; 84484; 85025; 85379; 93010; 99284; J2930; J3490; J7620

== ENCOUNTER 2021-09-18 01:41 | Outpatient (CLI) | payer MEDICAID, SELFPAY ==
[2021-09-18 11:05] LABS: HCT 45.2 % (36.0-46.0); HGB 14.3 g/dL (11.2-15.7); MCH 26.8 pg (27.0-33.0); MCHC 31.6 % (32.0-36.0); MCV 84.6 fL (80-95); MPV 9.2 fL (8.0-11.0); Platelet Count 595 10^3/uL (130-400); RBC 5.34 10^6/uL (3.93-5.22); RDW 15.2 % (11.7-14.6); RDW-SD 46.3 fL; WBC 23.79 10^3/uL (4.4-10.8)
[2021-09-18 11:13] LABS: ESR 22 mm/hr (0-30)
[2021-09-18 11:20] LABS: C-Reactive Protein 1.16 mg/dL (0.0-0.3)
== END 2021-09-18 01:42 | disposition home or self-care (01) ==
LOC: LOS 01:41
PROVIDERS: Nurse Practitioner Family; PCP Family Medicine; Visit Provider Internal Medicine Rheumatology
DX: M35.3 Polymyalgia rheumatica (principal); J40 Bronchitis, not specified as acute or chronic
CPT/HCPCS: 36415; 85027; 85652; 86140

== ENCOUNTER 2022-03-07 00:52 | Outpatient (CLI) | payer MEDICAID, SELFPAY ==
--- NOTE | 2022-03-07 07:15 | DI.MAMMO_ITS ---
Exam(s) MAMMO SCREENING EXAM: MAMMO SCREENING CLINICAL HISTORY: screening,z12.39. TECHNIQUE: Bilateral full field digital CC and MLO mammographic images were obtained with 3D tomosyn thesis and utilizing computer aided detection (CAD). COMPARISON: Prior mammograms were reviewed, the most recent being January 2021. FINDINGS: There has been no significant change in the appearance and distribution of the fibroglandular tissue. There are no new spiculated masses nor malignant appearing microcalcification groups. There is no significant architectural distortion nor skin thickening-retraction. IMPRESSION: No radiographic evidence of malignancy. BI-RADS Category 1 - Negative Breast Density - Category A - Almost entirely fatty Breast density Category C or D implies that the patient has dense breast tissue. Dense breast tissue can make it harder to find cancer on a mammogram. Dense breast tissue is also associated with an incr eased risk of breast cancer. This information about the result of the mammogram report was provided to the patient to raise their awareness. Use this report when you speak with the patient about their risks for breast cancer, which includes their family history. At that time, you may recommend additional screening tests (Ultrasoun d or MRI) as these tests may add significant information. A negative radiographic report should not delay biopsy if a dominant or clinically suspicious mass is present. Up to ten percent of cancers are not identified on mammography. A negative report may reinforce clinical impression. Adenosis and dense breasts may obscure an underlying neoplasm. False positive reports average 6 to 10%. Patient will receive a letter notifying them of these results.
== END 2022-03-07 01:12 ==
PROVIDERS: PCP Family Medicine; Visit Provider Family Medicine
DX: Z12.31 Encounter for screening mammogram for malignant neoplasm of breast (principal)
CPT/HCPCS: 77063; 77067

== ENCOUNTER 2022-05-20 01:06 | Outpatient (CLI) | payer MEDICAID, SELFPAY ==
[2022-05-20] MEDS: Albuterol HFA 18 GM 200 PUFF INH IH (13:35)
[2022-05-20] MEDS: Inhaler, Assist Device 1 EACH MC (13:36)
--- NOTE | 2022-05-21 07:47 | W.PFT ---
Date of service: 05/20/22 Time of Service: 12:52 Pulmonary Function Test Result Requesting Provider Narciso Colindres Indications: GORDON Interpretation Spirometry: There is no airflow limitation. There is no significant bronchodilator response. Impression Normal spirometry Clinical Correlation therefore is recommended.
== END 2022-05-20 01:07 | disposition home or self-care (01) ==
LOC: RT 01:06
PROVIDERS: Visit Provider Family Medicine
DX: J45.909 Unspecified asthma, uncomplicated (principal); R06.09 Other forms of dyspnea; R05.9 Cough, unspecified
CPT/HCPCS: 94060

== ENCOUNTER 2023-02-05 03:01 | Outpatient (CLI) | payer MEDICARE, MEDICAID, SELFPAY ==
[2023-02-05 12:56] LABS: Abs Immature Grans 0.09 10^3/uL (0.0-0.06); Absolute Basophil Count 0.09 10^3/uL (0.0-0.2); Absolute Eosinophil Count 0.33 10^3/uL (0.0-0.7); Absolute Lymphocyte Count 3.37 10^3/uL (1.2-3.4); Basophils % 0.6; Eosinophils % 2.3; HCT 40.7 % (36.0-46.0); HGB 12.7 g/dL (11.2-15.7); Immature Grans % 0.6; Lymphocytes % 23.7; MCH 23.7 pg (27.0-33.0); MCHC 31.2 % (32.0-36.0); MCV 76 fL (80-95); MPV 8.9 fL (8.0-11.0); Monocytes % 7.2; Neutrophils % 65.6; RBC 5.36 10^6/uL (3.93-5.22); RDW 18.3 % (11.7-14.6); RDW-SD 48.6 fL; WBC 14.21 10^3/uL (4.4-10.8)
[2023-02-05 13:00] LABS: Absolute Monocyte Count 1.02 10^3/uL (0.1-0.8); Absolute Neutrophil Count 9.32 10^3/uL (1.2-6.7)
[2023-02-05 13:03] LABS: ESR 97 mm/hr (0-30)
[2023-02-05 13:04] LABS: Hemoglobin A1C 5.5 % (<5.7)
[2023-02-05 13:29] LABS: ALT 19 U/L (14-59); AST 15 U/L (15-37); Albumin 3.3 g/dL (3.4-5.0); Alkaline Phosphatase 104 U/L (46-116); BUN 23 mg/dL (7-18); Bilirubin, Total 0.3 mg/dL (0.2-1.0); CREATININE 1.1 mg/dL (0.55-1.02); Calcium 9.6 mg/dL (8.5-10.1); Calculated LDL 132 mg/dL (<100); Chloride 100 mmol/L (98-107); Cholesterol 209 mg/dL (<200); Estimated GFR 56.81 (mL/min/1.73m2); Glucose 95 mg/dL (74-106); HDL Cholesterol 50 mg/dL (40-60); Potassium 4.2 mmol/L (3.5-5.1); Sodium 137 mmol/L (136-145); TSH (W/Ref FT4) 2.25 uIU/mL (0.36-3.74); Total Protein 7.8 g/dL (6.4-8.2); Triglyceride 136 mg/dL (<150)
[2023-02-05 13:46] LABS: Bilirubin Negative (Negative); Blood Small (Negative); Clarity Clear (Clear); Glucose Negative (Negative); Ketones Negative (Negative); Leukocyte Esterase Trace (Negative); Nitrite Negative (Negative); Specific Gravity 1.025 (1.005-1.025); Urobilinogen 0.2 mg/dL (Up to 0.2)
[2023-02-05 13:58] LABS: Platelet Count 761 10^3/uL (130-400)
[2023-02-05 14:05] LABS: Bacteria Few HPF (Negative); C & S Indicated? No/Sq. Contamination; Casts Negative LPF (Negative); Crystals Negative HPF (Negative); Epithelial Cells Moderate HPF (Negative); Mucus Negative (Negative); WBC 0-2 HPF (0-5)
[2023-02-05 14:25] LABS: C-Reactive Protein 1.61 mg/dL (0.0-0.3)
[2023-02-06 10:45] LABS: HIV-1/2 Ag & Ab Screen Negative (Negative)
[2023-02-06 10:54] LABS: Hepatitis C Ab w Rflx HCV PCR Negative (Negative)
== END 2023-02-05 03:02 | disposition home or self-care (01) ==
LOC: LOS 03:01
PROVIDERS: Internal Medicine Rheumatology; PCP Nurse Practitioner Family; Visit Provider Family Medicine
DX: D72.829 Elevated white blood cell count, unspecified (principal); I10 Essential (primary) hypertension; N18.31 Chronic kidney disease, stage 3a; M79.7 Fibromyalgia; Z11.4 Encounter for screening for human immunodeficiency virus [HIV]; Z11.59 Encounter for screening for other viral diseases; R82.998 Other abnormal findings in urine; R79.82 Elevated C-reactive protein (CRP); R79.89 Other specified abnormal findings of blood chemistry
CPT/HCPCS: 36415; 80053; 80061; 85027; 85652; 86803; 87389; 81003; 81015; 83036; 84443; 85025; 86140

== ENCOUNTER 2023-04-13 01:16 | Outpatient (CLI) | payer MEDICARE, MEDICAID, SELFPAY ==
--- NOTE | 2023-04-13 06:30 | DI.MAMMO_ITS ---
Exam(s) MAMMO SCREENING EXAM: MAMMO SCREENING CLINICAL HISTORY: screening,z12.39 TECHNIQUE: Mammograms were interpreted according to the usual protocol including computer analysis w [employer] CAD system, tomosynthesis and C-view imaging. COMPARISON: 2016 through 2021 FINDINGS: The breasts are composed of mainly fatty density , Breast Density category A. No suspicious masses or suspicious microcalcifications are seen. No skin thickening or abnormal axillary lymph nodes are seen. There has been no significant change from prior exams. IMPRESSION: BI-RADS Category 1, Negative mammogram Yearly screening mammography is recommended. Breast Density - Category A, fatty density. A negative radiographic report should not delay biopsy if a dominant or clinically suspicious mass is present. Up to ten percent of cancers are not identified on mammography. A negative report may reinforce clinical impression. Adenosis and dense breasts may obscure an underlying neoplasm. False positive reports average 6 to 10%. Patient will receive a letter notifying them of these results.
== END 2023-04-13 01:36 ==
LOC: DI 01:17
PROVIDERS: PCP Nurse Practitioner Family; Visit Provider Nurse Practitioner Family
DX: Z12.31 Encounter for screening mammogram for malignant neoplasm of breast (principal)
CPT/HCPCS: 77063; 77067

== ENCOUNTER → 2023-09-11 19:05 | Outpatient (CLI) | payer MEDICARE, MEDICAID, SELFPAY ==
--- NOTE | 2023-09-11 10:45 | DI.RAD_ITS ---
Exam(s) XR CHEST 2V PA LATERAL EXAM: XR CHEST 2V PA LATERAL CLINICAL HISTORY: continued symptoms, cough, R05.9 TECHNIQUE: 2D digital imaging was performed. COMPARISON: CR XR CHEST 2V PA LATERAL from 04/26/2021 FINDINGS: HEART: Normal size. Aorta: Not dilated. Tortuous. PULMONARY VASCULATURE: Normal. LUNGS: Clear. PLEURAL SPACE: There is a tiny left pleural effusion. No pneumothorax. BONE:Unremarkable for age. IMPRESSION: Tiny left pleural effusion. Lungs otherwise clear. No pulmonary edema. DATA REPOSITORY: RADIATION DOSE DELIVERED:
== END ==
PROVIDERS: PCP Nurse Practitioner Family; Visit Provider Nurse Practitioner Family
DX: J90 Pleural effusion, not elsewhere classified (principal)
CPT/HCPCS: 71046

== ENCOUNTER → 2023-10-12 10:51 | Outpatient (BNVA) | payer MEDICARE, MEDICAID, SELFPAY | PROVIDERS: PCP Nurse Practitioner Family; Referring Provider Nurse Practitioner Family; Visit Provider Student in an Organized Health Care Education/Training Program | DX: J45.40 Moderate persistent asthma, uncomplicated (principal); Z79.51 Long term (current) use of inhaled steroids; Z79.899 Other long term (current) drug therapy | CPT/HCPCS: 99215 ==

== ENCOUNTER 2023-10-15 04:28 | Outpatient (CLI) | payer MEDICARE, SELFPAY ==
[2023-10-15] MEDS: Inhaler, Assist Device 1 EACH MC (14:34)
[2023-10-15] MEDS: Methacholine 100 MG VIAL IH (14:34)
[2023-10-15] MEDS: Albuterol HFA 18 GM 200 PUFF INH IH (14:34)
--- NOTE | 2023-10-16 12:30 | PFT_ITS ---
Date of service: 10/15/23 Time of Service: 13:01 Pulmonary Function Test Result Indications: Asthma, dyspnea Interpretation Spirometry: No airflow limitation at baseline. There is a 22% decrease in FEV1 with admin istration of 2mg/mL methacholine. Impression Positive methacholine challenge testing. Clinical Correlation therefore is recommended.
== END 2023-10-15 04:29 | disposition home or self-care (01) ==
LOC: RT 04:30
PROVIDERS: PCP Nurse Practitioner Family; Visit Provider Nurse Practitioner Family
DX: J45.998 Other asthma (principal)
CPT/HCPCS: 94060; 94070; J7674

== ENCOUNTER 2024-03-02 05:09 | Outpatient (CLI) | payer MEDICARE, SELFPAY ==
[2024-03-02 12:49] LABS: CREATININE 1.3 mg/dL (0.55-1.02); Estimated GFR 46.21 (mL/min/1.73m2)
== END 2024-03-02 05:10 | disposition home or self-care (01) ==
LOC: LOS 05:09
PROVIDERS: PCP Nurse Practitioner Family; Visit Provider Family Medicine
DX: R59.0 Localized enlarged lymph nodes (principal)
CPT/HCPCS: 36415; 82565

== ENCOUNTER → 2024-04-15 00:08 | Outpatient (CLI) | payer MEDICARE, SELFPAY ==
--- NOTE | 2024-04-15 08:00 | DI.CT_ITS ---
Exam(s) CT NECK W EXAM: CT NECK W CLINICAL HISTORY: left cerv adenopathy,r59.0. TECHNIQUE: Imaging Protocol: Axial computed tomography images with coronal and sagittal reformatted images were created and reviewed. CONTRAST MATERIAL: Intravenous: Omnipaque 350 Contrast volume:100mL COMPARISON: There are no priors for comparison. FINDINGS: Orbits and orbital soft tissues: Within normal limits. Visualized paranasal sinuses: Within normal limits. Nasopharynx: Within normal limits. Oropharynx: Within normal limits. Hypopharynx: Within normal limits. Larynx: Within normal limits. Retropharyngeal space: Within normal limits. Parotids/submandibular: There is a 1.1 x 1 cm round nodule in the bed of the right submandibular gla nd. This may represent a small residual submandibular gland on the right. The left submandibular gl and appears mildly enlarged but otherwise unremarkable. No evidence of a mass is seen. The parotid glands appear symmetric and unremarkable. Thyroid gland: The patient has had a prior right thyroidectomy. The left thyroid gland is mildly en larged. There is mild heterogeneity of the gland. There is a less than 1 cm hypodense nodule in the thyroid gland. No follow-up is recommended. Lymphadenopathy: There are lymph nodes seen in the left neck. The largest measures 1.3 x 0.8 cm. ( Series 4, image 259). Trachea: Within normal limits. Lung apices: Within normal limits. Bones: Within normal limits for the patient's age. Carotids/Jugular: Within normal limits. Soft tissues: Within normal limits. IMPRESSION: 1. There is a small residual right submandibular gland measuring 1.1 cm. The left submandibular glan d appears mildly enlarged but is otherwise unremarkable. No submandibular mass is seen. 2. The patient is status post right thyroidectomy. There is a less than 1 cm nodule in the left thyr oid gland. No follow-up is recommended. 3. The largest lymph node in the left neck measures 1.3 x 0.8 cm. No significant cervical adenopathy . RADIATION DOSE DELIVERED: 458.62mGy.cm Total DLP 458.62mGy.cm Total DLP DATA REPOSITORY: All CT scans at this facility are submitted to the National Radiology Data Registry (NRDR) Dose Index Registry (DIR) with the [employer] (ACR). RADIATION OPTIMIZATION: All CT scans at this facility use at least one of these dose optimization te chniques: automated exposure control; mA and/or kV adjustment per patient size (includes targeted exa ms where dose is matched to clinical indication); or iterative reconstruction.
[2024-04-15] MEDS: Omnipaque 350 MG/ML 100 ML BTL IJ (15:07)
[2024-04-15] MEDS: Normal Saline - Diluent 50 ML VIAL IJ (15:08)
== END ==
PROVIDERS: PCP Nurse Practitioner Family; Visit Provider Family Medicine
DX: R59.0 Localized enlarged lymph nodes (principal)
CPT/HCPCS: 70491; J3490

== ENCOUNTER 2024-12-07 02:20 | Outpatient (CLI) | payer MEDICARE, SELFPAY ==
--- NOTE | 2024-12-07 09:56 | DI.RAD_ITS ---
Exam(s) XR ARTHRITIS SERIES EXAM: XR ARTHRITIS SERIES CLINICAL HISTORY: pain in hands, decreased strength,ARTHRITIS,M19.049. TECHNIQUE: 2D digital imaging was performed. Two images were obtained. COMPARISON: No exams were available for comparison FINDINGS: In the right hand, mild arthritic changes are seen at the 1st CMC joint characterized by joint space narrowing and osteophytes. There is mild joint space narrowing seen at the DIP joints of the 3rd, 4t h and 5th fingers. No erosions are seen. No periarticular osteopenia is present. No soft tissue ca lcifications are seen. In the left hand, there are moderate arthritic changes seen at the 1st CMC joint characterized by brennan nt space narrowing and osteophytes. The joint spaces are otherwise well maintained. No periarticula r osteopenia or erosions are seen. No soft tissue calcifications are present. 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 DATA REPOSITORY: RADIATION DOSE DELIVERED:
== END 2024-12-07 02:40 ==
LOC: DI 02:20
PROVIDERS: PCP Nurse Practitioner Family; Visit Provider Nurse Practitioner Family
DX: M19.041 Primary osteoarthritis, right hand (principal); M19.042 Primary osteoarthritis, left hand
CPT/HCPCS: 73120

== ENCOUNTER 2024-12-30 22:21 | Outpatient (REF) | payer MEDICARE, SELFPAY ==
[2024-12-30 21:44] LABS: Abs Immature Grans 0.17 10^3/uL (0.0-0.06); Absolute Basophil Count 0.07 10^3/uL (0.0-0.2); Absolute Eosinophil Count 0.07 10^3/uL (0.0-0.7); Absolute Monocyte Count 0.83 10^3/uL (0.1-0.8); Basophils % 0.3 %; Eosinophils % 0.3 %; HCT 44.7 % (36.0-46.0); Immature Grans % 0.8 %; Lymphocytes % 6.5 %; MCH 24.6 pg (27.0-33.0); MCHC 31.3 % (32.0-36.0); MCV 79 fL (80-95); MPV 9.4 fL (8.0-11.0); Monocytes % 3.7 %; Neutrophils % 88.4 %; Platelet Count 630 10^3/uL (130-400); RBC 5.69 10^6/uL (3.93-5.22); RDW 17.2 % (11.7-14.6); RDW-SD 47.8 fL; WBC 22.47 10^3/uL (4.4-10.8)
[2024-12-30 21:45] LABS: Absolute Lymphocyte Count 1.46 10^3/uL (1.2-3.4); Absolute Neutrophil Count 19.86 10^3/uL (1.2-6.7)
[2024-12-30 22:14] LABS: C-Reactive Protein 1.02 mg/dL (<or=0.5); Vitamin B12 419 pg/mL (193-986)
== END 2024-12-30 22:22 | disposition home or self-care (01) ==
LOC: LBN 22:21
PROVIDERS: PCP Nurse Practitioner Family; Visit Provider Nurse Practitioner Family
DX: M79.7 Fibromyalgia (principal); R59.0 Localized enlarged lymph nodes; R20.2 Paresthesia of skin
CPT/HCPCS: 82607; 85025; 86140

== ENCOUNTER 2025-01-11 11:24 | Emergency (ER) | payer MEDICARE, SELFPAY ==
[2025-01-11] VITALS (23 sets, daily range): BP systolic 152–192; BP diastolic 66–118; PULSE 69–99; RESP 15; TEMP 36.9; O2SAT 95–100
--- NOTE | 2025-01-11 11:45 | DI.CT_ITS ---
Exam(s) CT HEAD CERVICAL SPINE WO EXAM: CT HEAD CERVICAL SPINE WO CLINICAL HISTORY: TRAUMA. TECHNIQUE: Imaging Protocol: Axial computed tomography images with coronal and sagittal reformatted images were created and reviewed COMPARISON: No exams were available for comparison FINDINGS: BRAIN: Hyperostosis frontalis interna incidentally noted. Benign-appearing osseous findings are noted in th e posterior skull occipital bone. There are no skull fractures nor fluid in the visualized paranasal sinuses. There is no evidence of intracranial hemorrhage, mass effect, or shift of midline structures. There are no extra-axial fluid collections. The ventricles are not enlarged or shifted and there is no blo od within the ventricular system nor within the basal cisterns. CERVICAL SPINE: There is no evidence of fracture nor listhesis. No significant prevertebral soft tissue swelling. Multilevel chronic disc space narrowing evident throughout the cervical spine. There are Luschka brennan nt osteophytes bilaterally at the lower 3 levels. There is fusion across the left facet joints at C3 -4 level. There is no significant facet joint malalignment. No significant osseous lesions evident. IMPRESSION: No acute intracranial findings on this noninfused CT scan of the brain. No evidence of acute cervical spine fracture, malalignment, nor acute compromise of the cervical spin al canal. Chronic multilevel degenerative disc disease. Report called by myself to ER 01/11/2025 at 12:35 p.m. RADIATION DOSE DELIVERED: 1,388.87mGy.cm Total DLP DATA REPOSITORY: All CT scans at this facility are submitted to the National Radiology Data Registry (NRDR) Dose Index Registry (DIR) with the [employer] (ACR). RADIATION OPTIMIZATION: All CT scans at this facility use at least one of these dose optimization te chniques: automated exposure control; mA and/or kV adjustment per patient size (includes targeted exa ms where dose is matched to clinical indication); or iterative reconstruction.
[2025-01-11] MEDS: Diph,Pertuss(Acell),Tet Vac/Pf 0.5 ML SYR IM (12:07)
[2025-01-11] MEDS: Acetaminophen 500 MG TAB 1000 MG PO (12:07)
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
[2025-01-11] MEDS: Lidocaine 1% Multi-Dose W/EPI 1/100,000 50 ML VIAL (15:18)
[2025-01-11] MEDS: Lidocaine/Epinephri/Tetracaine Topical Gel 3 ML (15:18)
== END 2025-01-11 14:15 | disposition home or self-care (01) ==
PROVIDERS: Emergency Provider Emergency Medicine; PCP Nurse Practitioner Family
DX: S01.01XA Laceration without foreign body of scalp, initial encounter (principal); W01.190A Fall on same level from slipping, tripping and stumbling with subsequent striking against furniture, initial encounter; Z23 Encounter for immunization
CPT/HCPCS: 13101; 13102; 90471; 90715; 99284; 70450; 72125; J2004

== ENCOUNTER 2025-02-13 15:07 | Outpatient (REF) | payer MEDICARE, SELFPAY ==
[2025-02-13 21:15] LABS: Absolute Basophil Count 0.07 10^3/uL (0.0-0.2); Absolute Eosinophil Count 0.02 10^3/uL (0.0-0.7); Absolute Lymphocyte Count 1.13 10^3/uL (1.2-3.4); Absolute Monocyte Count 1.04 10^3/uL (0.1-0.8); Absolute Neutrophil Count 15.68 10^3/uL (1.2-6.7); Basophils % 0.4 %; Eosinophils % 0.1 %; HCT 49.2 % (36.0-46.0); HGB 15.6 g/dL (11.2-15.7); Immature Grans % 1.6 %; Lymphocytes % 6.2 %; MCH 25.4 pg (27.0-33.0); MCHC 31.7 % (32.0-36.0); MCV 80 fL (80-95); MPV 9.3 fL (8.0-11.0); Monocytes % 5.7 %; Platelet Count 494 10^3/uL (130-400); RBC 6.14 10^6/uL (3.93-5.22); RDW 19.2 % (11.7-14.6); RDW-SD 52.9 fL; WBC 18.23 10^3/uL (4.4-10.8)
[2025-02-13 21:23] LABS: Anion Gap 11.2 mmol/L (3-11); BUN 36 mg/dL (7-18); CO2 24.8 mmol/L (21.0-32.0); CREATININE 1.6 mg/dL (0.55-1.02); Calcium 8.9 mg/dL (8.5-10.1); Chloride 105 mmol/L (98-107); Estimated GFR 35.79 (mL/min/1.73m2); Glucose 111 mg/dL (74-106); Potassium 4.8 mmol/L (3.5-5.1); Sodium 141 mmol/L (136-145)
[2025-02-14 20:20] LABS: HBs Antibody, Quant <3.1 mIU/mL (See Note); Hep B Surface Ab Negative (See Note); Hepatitis B Core Antibody Negative (Negative); Hepatitis B Surface Antigen Negative (Negative)
== END 2025-02-13 15:08 | disposition home or self-care (01) ==
LOC: LBN 15:07
PROVIDERS: PCP Nurse Practitioner Family; Visit Provider Nurse Practitioner Family
DX: I10 Essential (primary) hypertension (principal); Z11.59 Encounter for screening for other viral diseases; J03.90 Acute tonsillitis, unspecified; K21.9 Gastro-esophageal reflux disease without esophagitis
CPT/HCPCS: 80048; 86704; 86706; 87340; 85025; 87070

== ENCOUNTER 2025-02-21 12:24 | Outpatient (CLI) | payer MEDICARE, SELFPAY ==
--- NOTE | 2025-02-21 12:47 | DI.RAD_ITS ---
Exam(s) XR CHEST 2V PA LATERAL EXAM: XR CHEST 2V PA LATERAL CLINICAL HISTORY: ? PNEUMONIA, HYPERTENSION,DYSPNEA. TECHNIQUE: 2D digital imaging was performed. COMPARISON: CR XR CHEST 2V PA LATERAL from 09/11/2023 FINDINGS: 2 views: Heart size is normal. The mediastinum is not widened. Lungs are clear. No infiltrates nor pleural effusions. IMPRESSION: No acute pulmonary findings. DATA REPOSITORY: RADIATION DOSE DELIVERED:
== END 2025-02-21 12:44 ==
LOC: DI 12:25
PROVIDERS: PCP Nurse Practitioner Family; Visit Provider Nurse Practitioner Family
DX: I10 Essential (primary) hypertension (principal)
CPT/HCPCS: 71046

== ENCOUNTER 2025-02-21 21:52 | Outpatient (REF) | payer MEDICARE, SELFPAY ==
[2025-02-21 22:10] LABS: HCT 45.8 % (36.0-46.0); HGB 14.7 g/dL (11.2-15.7); MCH 25.7 pg (27.0-33.0); MCHC 32.1 % (32.0-36.0); MCV 80 fL (80-95); MPV 9.3 fL (8.0-11.0); RBC 5.73 10^6/uL (3.93-5.22); RDW 18.5 % (11.7-14.6); WBC 18.91 10^3/uL (4.4-10.8)
[2025-02-21 22:18] LABS: Anion Gap 13.1 mmol/L (3-11); BUN 45 mg/dL (7-18); C-Reactive Protein 7.72 mg/dL (<or=0.5); CO2 22.9 mmol/L (21.0-32.0); CREATININE 2.1 mg/dL (0.55-1.02); Calcium 8.7 mg/dL (8.5-10.1); Chloride 99 mmol/L (98-107); Estimated GFR 25.83 (mL/min/1.73m2); Glucose 116 mg/dL (74-106); Potassium 4.8 mmol/L (3.5-5.1); Sodium 135 mmol/L (136-145)
[2025-02-21 23:03] LABS: Absolute Lymphocyte Count 3.97 10^3/uL (1.2-3.4); Absolute Monocyte Count 0.57 10^3/uL (0.1-0.8); Absolute Neutrophil Count 14.37 10^3/uL (1.2-6.7); Atypical Lymphocytes % 7 %; Bands % 3 %
[2025-02-21 23:04] LABS: Anisocytosis 1+; Diff Comment Manual Differential; Platelet Count 446 10^3/uL (130-400)
== END 2025-02-21 21:53 | disposition home or self-care (01) ==
LOC: LBN 21:52
PROVIDERS: PCP Nurse Practitioner Family; Visit Provider Nurse Practitioner Family
DX: D72.829 Elevated white blood cell count, unspecified (principal); M35.3 Polymyalgia rheumatica; I10 Essential (primary) hypertension
CPT/HCPCS: 80048; 85025; 86140

== ENCOUNTER 2025-03-09 09:41 | Outpatient (CLI) | payer MEDICARE, SELFPAY ==
--- NOTE | 2025-03-09 09:30 | RT.EKG_ITS ---
APPROVED REPORT Exam: Resting ECG Reason for Exam: shortness of breath Patient Location: O HR:95 bpm ECG Measurements Heart Rate 95 AXIS LA 171 P 56 QRSd 77 QRS -28 QT 333 T 92 QTc 419 Conclusion Sinus rhythm...normal P axis, V-rate 50- 99 LVH with secondary repolarization abnormality...multi-LVH criteria, abnrm ST-T Left axis Anterior infarct, old...Q >40mS, abnormal ST-T, V2-V5
== END 2025-03-09 09:42 | disposition home or self-care (01) ==
LOC: DI.CM 09:47
PROVIDERS: PCP Nurse Practitioner Family; Visit Provider Nurse Practitioner Family
DX: R06.02 Shortness of breath (principal); R94.31 Abnormal electrocardiogram [ECG] [EKG]
CPT/HCPCS: 93010

== ENCOUNTER 2025-03-09 12:39 | Outpatient (REF) | payer MEDICARE, SELFPAY | END 2025-03-09 12:40 | disposition home or self-care (01) | LOC: LBN 12:39 | PROVIDERS: PCP Nurse Practitioner Family; Visit Provider Nurse Practitioner Family | DX: J03.90 Acute tonsillitis, unspecified (principal) | CPT/HCPCS: 87070 ==

== ENCOUNTER 2025-03-30 02:12 | Outpatient (CLI) | payer MEDICARE, SELFPAY ==
--- NOTE | 2025-03-30 08:00 | DI.DEXA_ITS ---
Exam(s) XR DEXA BONE DENSITY W/WO MONET EXAM: XR DEXA BONE DENSITY W/WO MONET CLINICAL HISTORY: screening for osteoporosis in postmenopausal status,z78.0 TECHNIQUE: Hologic Horizon C densitometer analysis of left hip, lumbar spine and left forearm. Lat eral survey image of the thoracic and lumbar spine. COMPARISON: CR XR DEXA BONE DENSITY W/WO MONET from 03/14/2021 CR XR CHEST 2V PA LATERAL from 02/21/2025 FINDINGS: Lateral view of the thoracic and lumbar spine shows no evidence of compression fractures. Bone mineral density measurements of the lumbar spine correspond to a total T-score of -0.6, in the normal range. This represents a 14.6 percent increase from 2020 Bone mineral density measurements of the left hip correspond to a total T-score of -1.5. This repre sents a 3.9 percent decrease from 2020. The femoral neck T-score is -3.2, in the osteoporotic range .. Theleft forearm bone mineral density measurements correspond to a T-score of the distal 3rd of -2.6, in the osteoporotic range. This represents a 16.7 percent decrease from 2020.. IMPRESSION: Osteoporosis of the hip and forearm. Normal bone mineral density of the lumbar spine.
--- NOTE | 2025-03-30 15:05 | DI.MAMMO_ITS ---
Exam(s) MAMMO SCREENING EXAM: MAMMO SCREENING CLINICAL HISTORY: screening,z12.39 TECHNIQUE: Bilateral full field digital CC and MLO mammographic images were obtained with 3D tomosyn thesis and utilizing computer aided detection (CAD). COMPARISON: Available for comparison. FINDINGS: Masses/Architectural Distortion: No suspicious masses or areas of architectural distortion are presen t. Microcalcifications: No suspicious pleomorphic-type are seen. Skin Thickening/Nipple Retraction: None. IMPRESSION: 1. No significant interval change with no specific features of malignancy noted. 2. Unless there is more urgent need, screening mammography is recommended, as per [employer] guidelines. BI-RADS Category 1 - Negative Breast Density - Category A-the breasts are almost entirely fatty Breast density Category C or D implies that the patient has dense breast tissue. Dense breast tissue can make it harder to find cancer on a mammogram. Dense breast tissue is also associated with an incr eased risk of breast cancer. This information about the result of the mammogram report was provided to the patient to raise their awareness. Use this report when you speak with the patient about their risks for breast cancer, which includes their family history. At that time, you may recommend additional screening tests (Ultrasoun d or MRI) as these tests may add significant information. A negative radiographic report should not delay biopsy if a dominant or clinically suspicious mass is present. Up to ten percent of cancers are not identified on mammography. A negative report may reinforce clinical impression. Adenosis and dense breasts may obscure an underlying neoplasm. False positive reports average 6 to 10%. Patient will receive a letter notifying them of these results.
== END 2025-03-30 02:32 ==
LOC: DI 02:13
PROVIDERS: PCP Nurse Practitioner Family; Visit Provider Nurse Practitioner Family
DX: Z12.31 Encounter for screening mammogram for malignant neoplasm of breast (principal); Z78.0 Asymptomatic menopausal state; Z13.820 Encounter for screening for osteoporosis; M81.0 Age-related osteoporosis without current pathological fracture
CPT/HCPCS: 77063; 77067; 77080

== ENCOUNTER 2025-06-01 13:48 | Outpatient (REF) | payer MEDICARE, SELFPAY ==
[2025-06-01 21:41] LABS: Abs Immature Grans 0.38 10^3/uL (0.0-0.06); HCT 43.7 % (36.0-46.0); HGB 13.8 g/dL (11.2-15.7); Immature Grans % 1.9 %; MCH 26.6 pg (27.0-33.0); MCHC 31.6 % (32.0-36.0); MCV 84 fL (80-95); MPV 9.3 fL (8.0-11.0); Platelet Count 521 10^3/uL (130-400); RBC 5.18 10^6/uL (3.93-5.22); RDW 16.9 % (11.7-14.6); RDW-SD 51.0 fL; WBC 20.26 10^3/uL (4.4-10.8)
[2025-06-01 21:47] LABS: Anion Gap 12.5 mmol/L (3-11); BUN 23 mg/dL (7-18); CO2 25.5 mmol/L (21.0-32.0); Calcium 8.1 mg/dL (8.5-10.1); Chloride 104 mmol/L (98-107); Estimated GFR 45.63 (mL/min/1.73m2); Glucose 152 mg/dL (74-106); Potassium 3.8 mmol/L (3.5-5.1); Sodium 142 mmol/L (136-145)
[2025-06-06 13:11] LABS: Myeloperoxidase Ab IgG <0.2 U (>=0.4)
== END 2025-06-01 13:49 | disposition home or self-care (01) ==
LOC: LBN 13:48
PROVIDERS: PCP Nurse Practitioner Family; Visit Provider Nurse Practitioner Family
DX: N18.31 Chronic kidney disease, stage 3a (principal); R06.00 Dyspnea, unspecified; D72.829 Elevated white blood cell count, unspecified
CPT/HCPCS: 80048; 83516; 85025

== ENCOUNTER 2025-06-22 01:11 | Outpatient (CLI) | payer MEDICARE, SELFPAY ==
--- NOTE | 2025-06-22 07:09 | DI.CT_ITS ---
Exam(s) CT CHEST WO EXAM: CT CHEST WO CLINICAL HISTORY: crackles after abx,DYSPNEA,R06.00. TECHNIQUE: Imaging protocol: Axial computed tomography images were obtained and coronal and sagittal reformatted images were created and reviewed. Computer aided detection (CAD) was utilized. CONTRAST MATERIAL: Noncontrast COMPARISON: CT CT CHEST PE CTA from 04/26/2021 CR XR CHEST 2V PA LATERAL from 02/21/2025 FINDINGS: Pulmonary parenchyma: No consolidation. No suspicious nodules. Interstitial changes: None. Emphysema: None. Tracheobronchial tree: No mucous plugging. No bronchiectasis . Pleura: No effusion or pneumothorax. Heart: The heart is not dilated. The coronary arteries show mild calcifications. Aorta: Thoracic aorta non-dilated. Mild atherosclerotic changes. Mediastinum and Letha: No dominant adenopathy or fluid collection. Left thyroid nodule again noted. Lymph nodes: No enlarged lymph nodes. Bones: Mild degenerative changes are seen. No evidence of compression fracture. Upper abdomen: Unremarkable. Soft tissues: Unremarkable. IMPRESSION: No acute abnormality. RADIATION DOSE DELIVERED: 505.71mGy.cm Total DLP 505.71mGy.cm Total DLP DATA REPOSITORY: All CT scans at this facility are submitted to the National Radiology Data Registry (NRDR) Dose Index Registry (DIR) with the [employer] (ACR). RADIATION OPTIMIZATION: All CT scans at this facility use at least one of these dose optimization techniques: automated exposure control; mA and/or kV adjustment per patient size (includes targeted exams where dose is matched to clinical indication); or iterative reconstruction.
== END 2025-06-22 01:31 ==
LOC: DI 01:11
PROVIDERS: PCP Nurse Practitioner Family; Visit Provider Nurse Practitioner Family
DX: R06.00 Dyspnea, unspecified (principal)
CPT/HCPCS: 71250

== ENCOUNTER 2025-06-22 02:42 | Outpatient (CLI) | payer MEDICARE, SELFPAY ==
[2025-06-22 15:04] LABS: Anion Gap 13.6 mmol/L (3-11); BUN 27 mg/dL (7-18); CO2 24.4 mmol/L (21.0-32.0); Calcium 9.0 mg/dL (8.5-10.1); Chloride 102 mmol/L (98-107); Estimated GFR 33.07 (mL/min/1.73m2); Glucose 159 mg/dL (74-106); Magnesium 1.5 mg/dL (1.8-2.4); Potassium 4.2 mmol/L (3.5-5.1); Sodium 140 mmol/L (136-145); Vitamin D 25 Total 22 ng/mL (30-100)
== END 2025-06-22 02:43 | disposition home or self-care (01) ==
LOC: LBO 02:42
PROVIDERS: PCP Nurse Practitioner Family; Visit Provider Nurse Practitioner Family
DX: E55.9 Vitamin D deficiency, unspecified (principal)
CPT/HCPCS: 36415; 80048; 82306; 83735; 83970

== ENCOUNTER 2025-06-26 09:36 | Outpatient (CLI) | payer MEDICARE, SELFPAY ==
[2025-06-26 13:32] LABS: NT-proBNP 232 pg/mL (<300); TSH (W/Ref FT4) 1.32 uIU/mL (0.36-3.74)
[2025-06-27 17:00] LABS: Myeloperoxidase Ab IgG <0.2 U (>=0.4); Scl 70 Antibodies, IgG <0.2 U
[2025-07-03 11:11] LABS: Sm (Smith) Ab, IgG <8.0 CU (<20.0)
== END 2025-06-26 09:37 | disposition home or self-care (01) ==
LOC: LBO 09:36
PROVIDERS: PCP Nurse Practitioner Family; Visit Provider Physician Assistant Surgical
DX: R06.00 Dyspnea, unspecified (principal); M35.3 Polymyalgia rheumatica; N18.31 Chronic kidney disease, stage 3a; J45.40 Moderate persistent asthma, uncomplicated; I50.9 Heart failure, unspecified
CPT/HCPCS: 36415; 82785; 83516; 83880; 84443; 86225; 86235

== ENCOUNTER 2025-07-13 01:18 | Outpatient (CLI) | payer MEDICARE, SELFPAY ==
--- NOTE | 2025-07-13 06:45 | DI.NM_ITS ---
APPROVED REPORT Exam: Pharmacologic Patient Location: Out-Patient Room/Bed: Stress Nurse: Nae Posey RN Ordering Provider:KIP TREJO, Contact Number: [phone] BMI: 47.05 Baseline Rhythm: Sinus Rhythm. Comment: Occasional PAC's; Occasional PVC's; Rare Bigeminy; Rare Couplets. Indications: Delayed Conduction; Dyspnea; Heart Failure; Asthma; PMR. Medical History Medical History: Pneumonia; Left Cervical Lymphadenopathy; Atelectasis; Fibromyalgia; BMI 36.0-36.9; MRSA; GERD; PMR; HTN; Sleep Apnea; CKD Stage 3; Depression; Asthma. Cardiac Medications: Albuterol Sulfate; Bupropion; Cyclobenzaprine; Advair HFA; Gabapentin; Lisinopril; Omeprazole; Spiriva; Prednisone. Allergies: Oxycodone. Cardiac Risk Factors: Family Hx; HTN; Asthma; Obesity. Previous Cardiac Procedures: None. Pretest Chest Pain Characteristics: None. Exercise History: None. Physical Disabilities: Shortness of breath with exertion. Lung Sounds: Clear bilaterally throughout, anterior and posterior. Heart Sounds: S1 and S2 auscultated. Stress Test Details Test: Pharmacologic stress was paired with low level exercise. Reason for pharmacologic stress test: physical limitation; pt. c/o shortness of breath w/ exertion. Nuclear Acquisition: Rest Tc-99m/Stress Tc-99m 1 day Rest Isotope: Tc-99m Sestamibi. Dose: 9.5 Date: 07/13/2025 Injection Time: 0925 Stress Isotope: Tc-99m Sestamibi. Dose: 27.5 Date: 07/13/2025 Injection Time: 1115 HR Resting HR Supine: 102 bpm Max Heart Rate (APMHR): 155 bpm Resting HR Standin bpm Target HR (85% APMHR): 132 bpm Max HR Achieved: 129 bpm % of APMHR: 83 Recovery HR: 111 bpm BP Resting BP Supine: 160/100 mmHg Resting BP Standin/60 mmHg Max BP: 172/90 mmHg Recovery BP: 126/64 mmHg ECG Resting ECG: Sinus Tachycardia. Ectopy: Occasional PAC's; Occasional PVC's; Rare Bigeminy; Rare Couplets. Stress ECG: Sinus Tachycardia. ST Change: Nondiagnostic low heart rate. Arrhythmia: Occasional PAC's; Occasional PVC's; Rare Bigeminy; Rare Couplets. Recovery ECG: Sinus Tachycardia. Recovery ST Change: Nondiagnostic low heart rate. Recovery Arrhythmia: Occasional PAC's; Occasional PVC's; Rare Bigeminy; Rare Couplets; Rare Triplet. Clinical Stress Symptoms: Dyspnea, General Fatigue. Angina Score: None Rate Pressure Product: 26620 Stress ECG Conclusion 1. 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 Patient underwent testing using pharmacologic stress with regadenoson 3. Peak heart rate achieved was 83% of maximal predicted for age 4. The electrocardiographic portion of the test showed no evidence of myocardial ischemia at a slightly submaximal heart rate 5. See MPI report Stress Test Summary STAGE HR BP SpO2 Symptoms NOTES Supine 102 160/100 98 Pt. is asymptomatic. Standing 112 114/60 98 1 min post Lexiscan injection 118 172/90 96 Pt. c/o moderate shortness of breath and generalized fatigue. 3 min post Lexiscan injection 118 152/70 97 Pt. c/o moderate shortness of breath and lessening generalized fatigue. 6 min post Lexiscan injection 111 126/64 97 Pt. states that all symptoms have resolved back to baseline. Pt. performed a nuclear medicine MPI; walking lexiscan protocol used due to pt.'s hx of shortness of breath with exertion. Pt. c/o moderate shortness of breath and generalized fatigue immediately following lexiscan injection. Pt. states that shortness of breath and generalized fatigue had resolved back to baseline prior to leaving the Stress Lab. Pt. was conversing pleasantly with nursing staff upon leaving the Stress Lab and left ambulatory in no apparent distress. MPI Conclusion Myocardial perfusion is normal. There is no ischemia or evidence of prior infarction Ejection fraction is 81%. Left ventricular function is hyperdynamic
[2025-07-13] MEDS: Regadenoson 0.4 MG/5 ML SYR IVP (11:14)
== END 2025-07-13 01:38 ==
LOC: DI 01:19
PROVIDERS: PCP Nurse Practitioner Family; Visit Provider Physician Assistant Surgical
DX: I50.9 Heart failure, unspecified (principal); J45.40 Moderate persistent asthma, uncomplicated; M35.3 Polymyalgia rheumatica
CPT/HCPCS: 78452; 93016; 93018; 93017; J2785

== ENCOUNTER 2025-07-20 00:29 | Outpatient (CLI) | payer MEDICARE, SELFPAY ==
--- NOTE | 2025-07-20 11:00 | DI.US_ITS ---
APPROVED REPORT EXAM: Comprehensive 2D, Doppler, and color-flow Echocardiogram Patient Location: Out-Patient Acquisition Consultant: Aimee Christensen RDCS (AE) Indications: Dyspnea, Heart failure, Asthma, Polymyalgia rheumatica Other Information Study Quality: Fair. Technically limited study due to body habitus, inability to position patient exam done supine patient unable to stay LLD. Conclusion Technically difficult and suboptimal study Mild concentric left ventricular hypertrophy. Ejection fraction is 55%. Wall motion is normal Right ventricle is not well-visualized Both atria are normal in size Within the limits of the study, no significant valvular disease is identified Wall motion Left Ventricle The left ventricle is normal size. The overall left ventricular systolic function appears normal. Mild concentric left ventricular hypertrophy. There is normal LV segmental wall motion. There is no ventricular septal defect visualized. LVEF is 55%. Right Ventricle Right ventricle is not well visualized. Right ventricular systolic function could not be assessed. Atria The left atrium size is normal. The right atrium size is normal. The interatrial septum is intact with no evidence for an atrial septal defect. Aortic Valve The aortic valve is normal in structure. There is no aortic valvular stenosis. No aortic regurgitation is present. Mitral Valve The mitral valve is normal in structure. No evidence of mitral valve stenosis. Trace mitral regurgitation. Tricuspid Valve The tricuspid valve is normal in structure. There is no tricuspid valve stenosis. Trace tricuspid regurgitation. Unable to assess PA pressure. Pulmonic Valve The pulmonary valve is normal in structure. There is no pulmonic valvular stenosis. Trace pulmonic regurgitation. Great Vessels The aortic root is normal in size. The ascending aorta is normal in size Aortic arch is not well visualized. IVC is normal in size and collapses >50% with inspiration. Pericardium There is no pericardial effusion. 2D Dimensions IVSD d PLAX 1.20 cm F: 0.6-1.0 Ao Root d 3.18 cm F: 2.7 - 3.3 LVPW d PLAX 1.20 cm F: 0.6 - 1.0 Ao Asc Diam d 3.36 cm F: 2.3 - 3.1 LVID d PLAX 4.20 cm F: 3.8 - 5.2 LVDs 2.90 cm F: 2.2 - 3.5 LV EF Teichholz 58.5 % FS 30.57 % LV EDV (Teich) 76.5 mL LV ESV (Teich) 31.7 mL Auto EF LV EDV A4C 86.2 mL LV EDV A2C 95.8 mL LV EDV BP 90.9 mL LV ESV A4C 38.5 mL LV ESV A2C 41.7 mL LV ESV BP 40.1 mL LVEF(%) A4C 55.3 % LVEF(%) A2C 56.4 % LVEF(%) BP 55.8 % LV SV A4C 47.6 ml LV SV A2C 54.1 ml LV SV BP 50.7 ml LV CO A4C 4.6 L/min LV CO A2C 5.3 L/min LV CO BP 4.9 L/min HR A4C 96.21 BPM HR A2C 98.37 BPM LV EDV Index (BP) LA Volume LA Length A4C 4.4 cm LA Length A2C 4.8 cm LA Area A4C s 13.70 cm2 LA Area A2C s 14.86 cm2 LA Vol A4C A-L 36.19 mL LA Vol A2C A-L 38.92 mL LA Vol Biplane A-L 39.3 mL LA Vol/BSA A4C A-L LA Vol/BSA A2C A-L LA Vol/BSA BP A-L 20.1 mL/m2 LA Vol A4C MOD 34.1 mL LA Vol A2C MOD 36.9 mL LA Vol BP MOD 37.1 mL LV Diastology MV E' medial 0.067 (>0.07 m/s) MV E Vmax 0.81 (0.4-1.3 m/s) MV E/E' MED 12.09 (<14) MV A Vmax 1.20 (0.4-1.3 m/s) E/A Ratio 0.7 Aortic Valve AoV Vmax 1.50 m/s LVOT Vmax 1.07 m/s AoV Peak Grad 8.9 mmHg LVOT Peak Grad 4.6 mmHg AoV Area (Vmax) 1.94 cm2 LVOT VTI 0.208 m AoV VTI 0.317 m LVOT Mean Grad 3.5 mmHg AoV Mean Ramirez. 1.13 m/s LVOT SV 56.28 mL AoV Mean Grad 5.6 mmHg LVOT Diam s 1.85 cm AoV Area (VTI) 1.77 cm2 AV Regurg Peak Gr. 8.94 mmHg Velocity Ratio 0.71 Mitral Valve MV DT 262 (160-240 msec) MV Vmax TIPS 1.22 m/s MV Mean Grad 2.9 (<2mmHg) MV VTI 0.264 m Pulmonary Valve PV Vmax 1.26 (0.5-1.5 m/s) RVOT Vmax 1.05 m/s PV Peak Grad 6.4 mmHg RVOT Peak Gr. 4.4 mmHg PV Mean Ramirez 0.87 m/s RVOT VTI 0.186 m PV Mean Grad 3.5 mmHg RVOT Mean Gr. 2.3 mmHg Tricuspid Valve RA Pressure 3.00 mmHg TV S' 0.13 m/s
== END 2025-07-20 00:49 ==
LOC: DI 00:30
PROVIDERS: PCP Nurse Practitioner Family; Visit Provider Internal Medicine Cardiovascular Disease
DX: I50.9 Heart failure, unspecified (principal); J45.40 Moderate persistent asthma, uncomplicated; M35.3 Polymyalgia rheumatica; I51.7 Cardiomegaly
CPT/HCPCS: 93306

== ENCOUNTER → 2025-08-22 09:53 | Outpatient (BNVA) | payer MEDICARE, SELFPAY | PROVIDERS: PCP Nurse Practitioner Family; Referring Provider Nurse Practitioner Family; Visit Provider Physician Assistant Surgical | DX: J45.40 Moderate persistent asthma, uncomplicated (principal) | CPT/HCPCS: 99214 ==

== ENCOUNTER 2025-08-22 12:44 | Outpatient (CLI) | payer MEDICARE, SELFPAY ==
[2025-08-22 11:16] LABS: Abs Immature Grans 0.23 10^3/uL (0.0-0.06); HCT 43.7 % (36.0-46.0); HGB 13.7 g/dL (11.2-15.7); Immature Grans % 1.3 %; MCH 25.0 pg (27.0-33.0); MCHC 31.4 % (32.0-36.0); MCV 80 fL (80-95); MPV 9.0 fL (8.0-11.0); Platelet Count 562 10^3/uL (130-400); RBC 5.49 10^6/uL (3.93-5.22); RDW 15.1 % (11.7-14.6); RDW-SD 43.7 fL; WBC 17.90 10^3/uL (4.4-10.8)
[2025-08-22 11:17] LABS: ESR 34 mm/hr (0-30)
[2025-08-22 12:28] LABS: C-Reactive Protein 1.96 mg/dL (<or=0.5)
[2025-08-22 13:33] LABS: Hemoglobin A1C 6.2 % (<5.7)
== END 2025-08-22 12:45 | disposition home or self-care (01) ==
LOC: LBO 12:44
PROVIDERS: PCP Nurse Practitioner Family; Visit Provider Physician Assistant Surgical
DX: J45.40 Moderate persistent asthma, uncomplicated (principal); D72.829 Elevated white blood cell count, unspecified; E11.9 Type 2 diabetes mellitus without complications; Z79.52 Long term (current) use of systemic steroids
CPT/HCPCS: 36415; 85652; 83036; 85025; 86140

== ENCOUNTER → 2025-09-05 09:53 | Outpatient (BNVA) | payer MEDICARE, SELFPAY | PROVIDERS: PCP Nurse Practitioner Family; Referring Provider Nurse Practitioner Family; Visit Provider Physician Assistant Surgical | DX: J45.40 Moderate persistent asthma, uncomplicated (principal) | CPT/HCPCS: 99214 ==

== ENCOUNTER → 2025-09-18 08:27 | Outpatient (BNVA) | payer MEDICARE, SELFPAY | PROVIDERS: PCP Nurse Practitioner Family; Referring Provider Nurse Practitioner Family; Visit Provider Physician Assistant Surgical | DX: J45.40 Moderate persistent asthma, uncomplicated (principal); Z23 Encounter for immunization | CPT/HCPCS: 90471; 96372; 99214 ==

== ENCOUNTER → 2025-11-28 14:47 | Outpatient (BNVA) | payer MEDICARE, SELFPAY | PROVIDERS: PCP Nurse Practitioner Family; Referring Provider Nurse Practitioner Family; Visit Provider Physician Assistant Surgical | DX: J45.40 Moderate persistent asthma, uncomplicated (principal); Z23 Encounter for immunization | CPT/HCPCS: 99214; 90471; 96372 ==